=== PATIENT | male | born 1955 | race Hispanic/Latino ===

== ENCOUNTER 2017-07-22 19:37 | Emergency (ER) | payer MEDICARE, MEDICAID ==
[2017-07-22 20:20] LABS: Hematocrit 31.6 % (42.0-52.0); Mean Platelet Volume 7.1 fL (7.4-10.4); Red Blood Cell (RBC) Count 2.92 mill/uL (4.70-6.10); White Blood Cell (WBC) Count 5.3 thou/uL (4.8-10.8)
[2017-07-22 20:43] LABS: #Eosinphils 0.2 thou/uL (0.0-0.7); #Lymphocytes 1.7 thou/uL (1.20-3.40); #Monocytes 0.5 thou/uL (0.11-0.59); #Neutrophils 2.9 thou/uL (1.40-6.50); %Basophils 0.6 % (0.0-1.0); %Eosinophils 3.4 % (0.0-10.0); %Lymphocytes 31.8 % (21.0-51.0); %Monocytes 9.9 % (0.0-10.0); Macrocytosis SLIGHT = 6-15 cells (100X) (0-5/hpf)
[2017-07-22 20:46] LABS: ALT (SGPT) 19 U/L (8-55); AST (SGOT) 23 U/L (5-34); Alkaline Phosphatase 93 U/L (40-150); Anion Gap 14 mmol/L (10-20); BUN (Urea Nitrogen) 41 mg/dL (8.4-25.7); Bilirubin, Total 0.3 mg/dL (0.2-1.2); Calc. Creatinine Clearance 0 mL/min (70-130); Calcium 9.6 mg/dL (7.8-10.44); Carbon Dioxide 30 mmol/L (23-31); Chloride 96 mmol/L (98-107); Estimated GFR-MDRD 14; Globulin 3.4 g/dL (2.4-3.5); Protein, Total 7.4 g/dL (5.8-8.1)
--- NOTE | 2017-07-22 22:17 | CT ---
CT BRAIN WITHOUT CONTRAST: 07/22/17 HISTORY: 61-year-old male with seizure, altered mental status. FINDINGS: There is encephalomalacia in the anteromedial frontal lobes bilaterally. There is associated mild di latation of the frontal horns, left greater than right. No evidence of acute infarct, hemorrhage, mi dline shift or abnormal extra-axial fluid collections is noted. Postop changes of the right frontal craniotomy are present. No acute osseous abnormalities are seen. The visualized paranasal sinuses an d mastoid air cells are well aerated. IMPRESSION: No CT evidence of acute intracranial process. POS: [facility]
== END 2017-07-22 22:41 | disposition home or self-care (01) ==
LOC: ERS 19:37
DX: R56.9 Unspecified convulsions (principal); F32.9 Major depressive disorder, single episode, unspecified; H40.9 Unspecified glaucoma; I73.9 Peripheral vascular disease, unspecified; M19.90 Unspecified osteoarthritis, unspecified site; I10 Essential (primary) hypertension; E03.9 Hypothyroidism, unspecified; G47.00 Insomnia, unspecified; E11.9 Type 2 diabetes mellitus without complications; Z79.899 Other long term (current) drug therapy; Z79.4 Long term (current) use of insulin
CPT/HCPCS: 36415; 36416; 70450; 80053; 84146; 85025; 93005

== ENCOUNTER 2017-08-27 13:42 | Inpatient (IN) | payer MEDICARE, MEDICAID ==
[2017-08-27 14:32] LABS: #Eosinphils 0.2 thou/uL (0.0-0.7); #Lymphocytes 1.8 thou/uL (1.20-3.40); #Monocytes 0.5 thou/uL (0.11-0.59); %Basophils 0.8 % (0.0-1.0); %Eosinophils 3.2 % (0.0-10.0); %Lymphocytes 33.4 % (21.0-51.0); %Monocytes 8.7 % (0.0-10.0); Hematocrit 28.7 % (42.0-52.0); Mean Platelet Volume 6.7 fL (7.4-10.4); Red Blood Cell (RBC) Count 2.64 mill/uL (4.70-6.10); White Blood Cell (WBC) Count 5.5 thou/uL (4.8-10.8)
[2017-08-27] MEDS ORDERED: Nitroglycerin 2% Ointment 1 INCH/1 GM Packet ONE (14:40)
--- NOTE | 2017-08-27 14:40 | RAD ---
UPRIGHT PORTABLE CHEST ONE VIEWS: History: 61-year-old male with chest pain beginning at noon. FINDINGS: Monitor leads overlie the chest. Heart size is within normal limits. The lungs are clear. IMPRESSION: No acute intrathoracic disease. No evidence for pneumonia, overt edema or pleural effusion. POS: [facility]
[2017-08-27 14:53] LABS: ALT (SGPT) 10 U/L (8-55); AST (SGOT) 15 U/L (5-34); Alkaline Phosphatase 66 U/L (40-150); Anion Gap 12 mmol/L (10-20); BUN (Urea Nitrogen) 21 mg/dL (8.4-25.7); Bilirubin, Total 0.3 mg/dL (0.2-1.2); CK (CPK) 27 U/L (30-200); Calc. Creatinine Clearance 0 mL/min (70-130); Calcium 9.4 mg/dL (7.8-10.44); Carbon Dioxide 34 mmol/L (23-31); Chloride 95 mmol/L (98-107); Estimated GFR-MDRD 17; Globulin 3.2 g/dL (2.4-3.5); Lipase 161 U/L (8-78); Protein, Total 6.9 g/dL (5.8-8.1)
[2017-08-27 14:59] LABS: Troponin I 0.014 ng/mL (< 0.028)
[2017-08-27 19:22] LABS: Troponin I 0.017 ng/mL (< 0.028)
[2017-08-27 22:09] LABS: Troponin I 0.018 ng/mL (< 0.028)
[2017-08-27] MEDS ORDERED: Meperidine HCl/PF 25 MG/ML VIAL SLOW IVP PRN (22:40)
[2017-08-27] MEDS ORDERED: Dextrose 50% Abboject 50 ML SYRINGE SLOW IVP PRN (22:40)
[2017-08-27] MEDS ORDERED: Ondansetron HCl/PF 4 MG/2 ML Vial IVP PRN (22:40)
[2017-08-27] MEDS ORDERED: Acetaminophen 325 MG TAB PO PRN (22:40)
[2017-08-27] MEDS ORDERED: HumaLOG 300 UNITS/3 ML VIAL SC PRN (22:40)
[2017-08-27] MEDS ORDERED: clonazePAM 0.5 MG TAB PO PRN (22:40)
[2017-08-27] MEDS ORDERED: Dextrose 5% in Water 1,000 ML IV PRN (22:40)
[2017-08-27] MEDS ORDERED: Sodium Chloride 0.9% 1,000 ML IV SCH (22:45)
--- NOTE | 2017-08-27 23:42 | CT ---
CT ABDOMEN AND PELVIS WITHOUT IV CONTRAST: 08/27/17 Multiple axial tomograms obtained through the abdomen and pelvis without IV enhancement. Oral contras t was not given. HISTORY: Acute pancreatitis. Abdominal pain. Lung bases show bibasilar atelectasis and tiny right effusion. Liver and spleen are unremarkable. The pancreas is unremarkable. There is no evidence of peripancreatic edema or inflammation. The stoma ch and duodenum are unremarkable. Adrenal glands and kidneys are unremarkable. No hydronephrosis. Aorta is calcified but normal caliber . Small bowel loops are normal caliber. Colon appears unremarkable. Appendix appears normal. No free fl uid in the abdomen or pelvis. IMPRESSION: 1. Mild bibasilar atelectasis and small right effusion. 2. No acute process. No CT evidence of pancreatitis. POS: [facility]
[2017-08-28] MEDS: Sodium Chloride 0.9% 1,000 ML IV SCH ×2 (01:39→15:31)
[2017-08-28] MEDS: Levothyroxine Sodium 125 MCG TAB PO SCH (05:25)
[2017-08-28 05:35] LABS: #Basophils 0.1 thou/uL (0.0-0.2); #Eosinphils 0.3 thou/uL (0.0-0.7); #Lymphocytes 1.8 thou/uL (1.20-3.40); #Monocytes 0.6 thou/uL (0.11-0.59); #Neutrophils 3.4 thou/uL (1.40-6.50); %Eosinophils 4.3 % (0.0-10.0); %Lymphocytes 29.4 % (21.0-51.0); %Monocytes 9.3 % (0.0-10.0); Hematocrit 32.9 % (42.0-52.0); Mean Platelet Volume 7.4 fL (7.4-10.4); Red Blood Cell (RBC) Count 3.02 mill/uL (4.70-6.10); White Blood Cell (WBC) Count 6.1 thou/uL (4.8-10.8)
--- NOTE | 2017-08-28 05:40 | HP ---
REASON FOR ADMISSION: Possible acute pancreatitis, chest pain. HISTORY OF PRESENT ILLNESS: Please note, the patient is a very poor historian and most of this history is obtained by my talking to the ER physician and prior records. Per alf records, patient developed left-sided chest pain around 12:30 in the afternoon. He was alert and clenching his chest. He also complained of shortness of breath. They notified PA distance education teacher. The patient was given aspirin and as the pain was persistent, EMS was called around 12:36 and the patient was transferred here to the ER. Currently, he complains of left upper quadrant pain. It is tender to touch in the left upper quadrant area as well. No nausea. PAST MEDICAL AND SURGICAL HISTORY: Diabetes mellitus type 2, hypertension, hypothyroidism, end-stage renal disease on hemodialysis, chronic anemia, osteoarthritis, peripheral vascular disease, glaucoma, left upper extremity dialysis access procedures, right hip surgery. CURRENT MEDICATIONS: Clonazepam 0.25 mg p.o. daily p.r.n. for anxiety, latanoprost eyedrops, levothyroxine 125 mcg p.o. daily, midodrine 10 mg on Friday, Friday, Friday for hypotension related to dialysis, multivitamin 1 tab once daily, NovoLog sliding scale, Ultram p.r.n. for pain, PhosLo 667 mg with meals, citalopram 20 mg daily. ALLERGIES: No known drug allergies. PERSONAL HISTORY: Patient is a [facility] resident. Does not abuse alcohol or drugs. No history of smoking. FAMILY HISTORY: Cannot be obtained as the patient is not a very good historian. REVIEW OF SYSTEMS: Cannot be obtained as patient is not a very good historian. PHYSICAL EXAMINATION: GENERAL: Patient is a 61-year-old male who is currently not in any acute distress. VITAL SIGNS: Blood pressure 116/56, pulse 54 per minute, respiratory rate 18 per minute, temperature 97.8 degrees Fahrenheit, saturating 100% on room air. NECK: Supple, no elevated JVD. HEENT: Eyes, extraocular muscles intact. Pupils reacting to light. Oral cavity, mucous membranes are dry. No exudates or congestion. CARDIOVASCULAR: S1, S2 heard. Regular rhythm. RESPIRATORY SYSTEM: Air entry 1+ bilateral. Scattered rhonchi plus bilateral. ABDOMEN: Soft, bowel sounds heard. No tenderness, rigidity or guarding. There is left upper quadrant tenderness to touch. No rigidity or guarding. Bowel sounds are heard. EXTREMITIES: No peripheral edema or calf tenderness. VASCULAR SYSTEM: Peripheral pulses 1+ bilateral. No ischemic ulcerations or gangrene. CENTRAL NERVOUS SYSTEM: No gross focal deficits seen. He moves all extremities. PSYCHIATRIC: No obvious hallucinations or delusions at present. Please note this cannot be accurately assessed as the patient is not a reliable historian. LABORATORY DATA AND X-RAY FINDINGS: White count of 5, H&H is 9 and 28, platelet count is 208, MCV is 108 with 54% neutrophils. Electrolytes: Serum bicarbonate is 34, BUN 21, creatinine 3.6, glucose 121. Liver enzymes are within normal limits. Troponin x2 is negative. Lipase is elevated at 161. Albumin is 3.7. Chest x-ray done showed no acute infiltrate. CT of the abdomen and pelvis done showed mild bibasilar atelectasis with small right effusion, no CT evidence of pancreatitis was seen. CLINICAL IMPRESSION AND PLAN: The patient will be gently hydrated with normal saline at 75 mL per hour. It is not clear if patient had dialysis yesterday. We will schedule him for dialysis today. The patient has left upper quadrant tenderness. Again, his CAT scan has not revealed any abnormality. His lipase was initially elevated and again it is unclear if he had nausea or vomiting at the alf. He apparently was holding onto his chest with pain. He also complained of shortness of breath at the alf. We will keep him n.p.o. and slowly wean him into liquid diet and solid diet as he tolerates. We will continue PhosLo, Celexa, Xalatan eyedrops, Synthroid as before. We will also consult Gastroenterology if patient were to continue to have persistent left upper quadrant pain. Lipid profile will be obtained as well. We will monitor his liver function test this morning and if it is elevated, right upper quadrant ultrasound could be done based on the labs. He has had 2 sets of troponin done, which were negative. We will obtain an echo with 2D Doppler for LV function. More history from family can be obtained in the morning about the reasons why he is in the alf. Patient apparently has had a right frontal craniotomy done based on the CAT scan done in 07/22/2017. Again, the history behind all this is unclear at present. Patient carries a Out of hospital DNR which was signed recently by his PCP and will be honored until day team has had a chance to confirm the same with family. Please note I have seen and examined patient on 08/27/2017. KATIE
[2017-08-28 05:52] LABS: ALT (SGPT) 10 U/L (8-55); AST (SGOT) 18 U/L (5-34); Alkaline Phosphatase 72 U/L (40-150); Anion Gap 15 mmol/L (10-20); BUN (Urea Nitrogen) 27 mg/dL (8.4-25.7); Bilirubin, Total 0.3 mg/dL (0.2-1.2); Calc. Creatinine Clearance 21 mL/min (70-130); Calcium 9.4 mg/dL (7.8-10.44); Carbon Dioxide 26 mmol/L (23-31); Chloride 98 mmol/L (98-107); Cholesterol 135 mg/dl (< 200 Desired); Estimated GFR-MDRD 14; Globulin 3.4 g/dL (2.4-3.5); LDL Cholesterol, Calculated 60 mg/dL; Lipase 403 U/L (8-78)
[2017-08-28] MEDS: Heparin 5,000 UNITS/ML VIAL SC SCH ×2 (09:06→21:10)
[2017-08-28] MEDS: Calcium Acetate 667 MG CAP PO SCH ×2 (09:07→18:30)
[2017-08-28] MEDS: Docusate 100 MG CAP PO SCH ×2 (09:07→21:10)
[2017-08-28] MEDS: Famotidine/PF 20 mg/2ml Vial SLOW IVP SCH (09:20)
--- NOTE | 2017-08-28 11:47 | PDOC.PN ---
- Subjective Encounter Start Date: 08/28/17 Encounter Start Time: 09:10 -: old records requested/rev Pt seen and exmained, chart reviewed in its entirety. This is my first visit with this patient Pt admitted overnight for Abd pain/CP, history of ESRD and elevated lipase. Pt feels better, continues to have LUQ discomfort, increased with palpation. No N/V now, no F/C. Pt normal dialyzes on M,W,F. states he did not dialyze yesterday and was supposd to dialyze tomorrow 10 point ROS was performed and neg for all except as above - Objective MAR Reviewed: Yes Vital Signs & Weight: Vital Signs (12 hours) Temp Pulse Resp BP Pulse Ox 08/28/17 08:00 97.0 F L 71 18 161/69 H 100 08/28/17 04:00 97.7 F 72 16 119/57 L 98 08/28/17 00:30 97.3 F L 60 18 143/66 H 99 Weight Weight 193 lb 12.8 oz I&O: 08/27/17 08/28/17 08/29/17 06:59 06:59 06:59 Intake Total 570 720 Balance 570 720 Result Diagrams: 08/28/17 04:22 08/28/17 04:22 Additional Labs: Accuchecks 08/28/17 08/28/17 06:01 01:56 POC Glucose 98 92 Radiology Reviewed by me: Yes EKG Reviewed by me: Yes Phys Exam - Physical Examination Constitutional: NAD facial edema to eyelids, lips and cheeks. pt says its normal Neck: no nodes, no JVD, supple, full ROM Respiratory: no wheezing, no rales, no rhonchi, clear to auscultation bilateral Cardiovascular: RRR, no significant murmur, no rub Gastrointestinal: soft, no distention, positive bowel sounds LUQ tende rto moderate palpation, no r/R/G Musculoskeletal: pulses present, edema present Neurological: non-focal, normal sensation, moves all 4 limbs speech hard to understand Lymphatic: no nodes Psychiatric: normal affect, A&O x 3 Skin: no rash, normal turgor, cap refill <2 seconds Dx/Plan (1) LUQ pain Code(s): R10.12 - LEFT UPPER QUADRANT PAIN Status: Acute Comment: not typical for pancreatitis. CT neg for pancreatitis changes, Lipase 150 on admit , now up to 400. gentle IV fluids, NPO. Pain control. GI consulted, will follow up on their recommendations (2) ESRD (end stage renal disease) on dialysis Code(s): N18.6 - END STAGE RENAL DISEASE; Z99.2 - DEPENDENCE ON RENAL DIALYSIS Status: Acute Comment: Renal consulted for possible HD. Will follow up on their recs. pt has gauze taped over his LUE fistula form his last HD, but states its wasnt yesterday (3) Hypothyroid Code(s): E03.9 - HYPOTHYROIDISM, UNSPECIFIED Status: Chronic Qualifiers: Hypothyroidism type: acquired Qualified Code(s): E03.9 - Hypothyroidism, unspecified (4) DM2 (diabetes mellitus, type 2) Status: Chronic Qualifiers: Diabetes mellitus complication status: with kidney complications Diabetes mellitus complication detail: with chronic kidney disease Diabetes mellitus fdc insulin use: with fdc use Chronic kidney disease stage: on chronic dialysis Qualified Code(s): E11.22 - Type 2 diabetes mellitus with diabetic chronic kidney disease; N18.6 - End stage renal disease; N18.6 - End stage renal disease; N18.6 - End stage renal disease; N18.6 - End stage renal disease; Z79.4 - adjunct faculty for medical terminology (current) use of insulin; Z79.4 - nursing home (current ) use of insulin; Z79.4 - nursing home (current) use of insulin; Z79.4 - adjunct faculty for medical terminology (current) use of insulin; Z99.2 - Dependence on renal dialysis; Z99.2 - Dependence on renal dialysis; Z99.2 - Dependence on renal dialysis; Z99.2 - Dependence on renal dialysis (5) HTN (hypertension) Code(s): I10 - ESSENTIAL (PRIMARY) HYPERTENSION Status: Chronic Qualifiers: Hypertension type: essential hypertension Qualified Code(s): I10 - Essential (primary) hypertension (6) PVD (peripheral vascular disease) Code(s): I73.9 - PERIPHERAL VASCULAR DISEASE, UNSPECIFIED Status: Chronic (7) Glaucoma Code(s): H40.9 - UNSPECIFIED GLAUCOMA Status: Chronic Qualifiers: Glaucoma type: unspecified Laterality: bilateral Qualified Code(s): H40.9 - Unspecified glaucoma - Plan cont current plan of care, PT/OT * .
--- NOTE | 2017-08-28 12:35 | CON ---
DATE OF PROCEDURE:. REQUESTING PHYSICIAN: Dr. Waldo Elliott DATE OF CONSULTATION: 08/28/2017 GI INPATIENT CONSULTATION NOTE REQUESTING PHYSICIAN: Dr. Reny Elliott. REASON FOR CONSULTATION: Possible acute pancreatitis and abdominal pain. HISTORY OF PRESENT ILLNESS: Fabrice Galarza Jr. is a 61-year-old man who was admitted to the hospital last night from the fdc, after the acute onset of left-sided chest pain and shortness of elroy ath, this was evidently acute and onset around lunchtime yesterday and lasted for several hours. Upo n presentation here, the pain was more in the left upper quadrant of the abdomen. There is no report of any chronic abdominal symptoms. The patient himself is a very poor historian. The most history is obtained from speaking with his sister. Labs on arrival demonstrated normal cardiac enzymes, but a mild lipase elevation. CT of the abdomen and pelvis, however, showed no evidence of acute pancreat itis and was otherwise normal. Currently, the patient is tolerating a full liquid diet. He says sara t some left upper quadrant pain persists, but the food does not worsen the pain. There has been no n ausea or vomiting. No change in bowel habits. His sister seems to recall, but he was diagnosed with peptic ulcer disease may be back in 2012. We have no records of this year. The patient is a dialys is patient. REVIEW OF SYSTEMS: Full review of systems including constitutional, head, eyes, ears, nose, throat, GI, , cardiovascular, respiratory, musculoskeletal, and neurologic systems is negative except as no charles in the HPI. PAST MEDICAL HISTORY: Hypothyroidism, diabetes type 2, hypertension, end-stage renal disease on hemo dialysis, chronic anemia, osteoarthritis, peripheral vascular disease, glaucoma, right hip surgery. OUTPATIENT MEDICATIONS: Clonazepam; latanoprost eyedrops; levothyroxine; midodrine on Friday, , and Friday for hypotension related dialysis; multivitamin daily; NovoLog sliding scale; Ultram p .r.n.; PhosLo; citalopram. ALLERGIES: No known drug allergies. SOCIAL HISTORY: No alcohol or drug abuse. No history of smoking. He comes from [facility] in [place]. FAMILY HISTORY: Negative for gastrointestinal malignancy. PHYSICAL EXAMINATION: VITAL SIGNS: Temperature 97.0, pulse 71, blood pressure 161/69, 100% oxygen saturation on room air. GENERAL: A 61-year-old man sitting up in bed comfortably, eating breakfast, in no acute distress. SKIN: No jaundice, no rashes were palpable. EYES: No scleral icterus. Extraocular movements intact. ENT: Mucous membranes moist, no oral lesions. LYMPH: No submandibular or supraclavicular lymphadenopathy. THYROID: Nontender to palpation. HEART: Regular rate and rhythm. LUNGS: Clear to auscultation bilaterally. ABDOMEN: Nondistended, bowel sounds present, soft, tender to palpation in the left upper quadrant, b ut no guarding or rebound tenderness. Nontender elsewhere in the abdomen. EXTREMITIES: No peripheral edema. VESSELS: Radial pulses 2+ bilaterally. NEUROLOGICAL: Cranial nerves II-XII intact bilaterally. No focal deficits. LABORATORY STUDIES: WBC 6.1, hemoglobin 10.8, platelets 220, MCV 109. BUN 27, creatinine 4.46, sodi um 135, potassium 4.3, total bilirubin 0.3, alkaline phosphatase 72, AST 18, ALT 10, albumin 3.6, tro ponin 0.01. Lipase 403. ASSESSMENT AND PLAN: 1. Left upper quadrant pain. 2. Elevated lipase, without CT evidence of pancreatitis. 3. Possible history of peptic ulcer disease. The patient's presentation is really not consistent wi th acute pancreatitis. He is tolerating a full liquid diet and this does not worsen the pain. Disco mfort seems to have improved since arrival yesterday that the pain really is more in the left upper q uadrant. I think the lipase elevation is nonspecific and this can also be seen in dialysis patients in the absence of real acute pancreatitis. The etiology of this pain is unclear, though this does se em to be improving. He is certainly at risk for peptic ulcer disease as a hemodialysis patient not o n any acid suppression. I think, it would be reasonable to perform EGD for further investigation, so we will schedule this for tomorrow. I would also like to get an abdominal ultrasound as well just t o rule out biliary pathology given the elevated lipase. Note, the normal LFTs. Thank you for the consultation. Please call with questions or concerns.
--- NOTE | 2017-08-28 16:07 | ULT ---
3ABDOMINAL ULTRASOUND: Date: 08-28-17 History: Elevated lipase and upper abdominal pain. FINDINGS: There is evidence of a small right pleural effusion. Pancreas, visualized portions of the IVC have a normal sonographic appearance. Vascular calcification seen in the abdominal aorta, but the abdominal aorta does appear to be normal in caliber. Gallbladder is not visualized related to patient's history of prior cholecystectomy. The spleen is mostly obscured and not well evaluated on this exam but is normal in size with greatest craniocaudal dimension of 9.7 cm. The kidneys demonstrate a normal sonographic appearance bilaterally. The right kidney measures 8.3 cm in length and the left kidney measured 7.7 cm in length. Common duct measures 0.6 cm in diameter which is within normal limits. IMPRESSION: 1. Small right pleural effusion. 2. Cholecystectomy. POS: [facility]
[2017-08-28] MEDS: Citalopram 20 MG TAB PO SCH (21:09)
[2017-08-28] MEDS: Latanoprost 0.005% Ophth Soln 2.5 ml Bottle EA EYE SCH (21:10)
[2017-08-29] MEDS ORDERED: Pantoprazole 40 MG VIAL IVP SCH ×2 (00:15→09:00)
[2017-08-29 00:58] LABS: #Basophils 0.1 thou/uL (0.0-0.2); #Eosinphils 0.2 thou/uL (0.0-0.7); #Lymphocytes 2.1 thou/uL (1.20-3.40); #Monocytes 0.5 thou/uL (0.11-0.59); #Neutrophils 3.9 thou/uL (1.40-6.50); %Basophils 0.9 % (0.0-1.0); %Eosinophils 3.5 % (0.0-10.0); %Lymphocytes 30.7 % (21.0-51.0); Hematocrit 33.7 % (42.0-52.0); Mean Platelet Volume 7.2 fL (7.4-10.4); Red Blood Cell (RBC) Count 3.12 mill/uL (4.70-6.10); White Blood Cell (WBC) Count 6.7 thou/uL (4.8-10.8)
[2017-08-29 01:36] LABS: ALT (SGPT) 11 U/L (8-55); AST (SGOT) 19 U/L (5-34); Alkaline Phosphatase 71 U/L (40-150); Anion Gap 17 mmol/L (10-20); BUN (Urea Nitrogen) 34 mg/dL (8.4-25.7); Bilirubin, Total 0.4 mg/dL (0.2-1.2); Calc. Creatinine Clearance 18 mL/min (70-130); Calcium 9.8 mg/dL (7.8-10.44); Carbon Dioxide 24 mmol/L (23-31); Chloride 99 mmol/L (98-107); Estimated GFR-MDRD 11; Globulin 3.4 g/dL (2.4-3.5); Magnesium 2.2 mg/dL (1.6-2.6); Protein, Total 7.3 g/dL (5.8-8.1)
[2017-08-29] MEDS: Sodium Chloride 0.9% 1,000 ML IV SCH ×2 (03:00→15:26)
[2017-08-29 06:08] LABS: #Eosinphils 0.2 thou/uL (0.0-0.7); #Lymphocytes 1.3 thou/uL (1.20-3.40); #Monocytes 0.4 thou/uL (0.11-0.59); #Neutrophils 5.2 thou/uL (1.40-6.50); %Basophils 0.4 % (0.0-1.0); %Eosinophils 2.3 % (0.0-10.0); %Lymphocytes 17.9 % (21.0-51.0); %Monocytes 5.9 % (0.0-10.0); Hematocrit 26.7 % (42.0-52.0); Mean Platelet Volume 7.1 fL (7.4-10.4); Red Blood Cell (RBC) Count 2.53 mill/uL (4.70-6.10); White Blood Cell (WBC) Count 7.1 thou/uL (4.8-10.8)
[2017-08-29] MEDS ORDERED: Albuterol Sulfate HFA (OR ONLY) ONE (07:01)
[2017-08-29] MEDS ORDERED: Diprivan 20 ML ONE (07:12)
--- NOTE | 2017-08-29 09:46 | OP ---
DATE OF PROCEDURE: 08/29/2017 GI ENDOSCOPY NOTE SURGEON: Adama Golden M.D. FEEDER OPERATOR SURGEON: None. PROCEDURE: Esophagogastroduodenoscopy, diagnostic. INDICATIONS: 1. Left upper quadrant pain. 2. Hematemesis, occurred overnight for the first time. 3. Possible history of peptic ulcer disease. MEDICATIONS: See anesthesia record. FINDINGS: After discussion of the risks, benefits and alternatives of the procedure, informed consen t was obtained and witnessed. Pre-endoscopic cardiopulmonary examination was satisfactory. Timeout was performed before sedation was achieved. Sedation was achieved with anesthesia assistance in the endoscopy unit. The patient was endotracheally intubated for airway protection and placed in left la teral decubitus position. A Pentax adult therapeutic upper endoscope was placed into the oropharynx and passed into the esophagus. Upon entering the esophagus, I encountered a large amount of blood cl ots. I spent an extensive amount of time clearing blood clot from the esophagus. Visualization was very difficult. Eventually I was able to clear the entire esophagus of blood clots and get a good ex amination. There was no evidence of any esophageal varices. There is some moderate esophagitis in t he distal esophagus, but no deep erosions, no active bleeding from this site. The endoscope was pass ed forward into the stomach. Forward and retroflexed views of the stomach were obtained. There is a large amount of old and fresh blood clot within the gastric fundus. I spent over 45 minutes trying to clear out blood clots from the gastric fundus in an attempt to visualize the entirety of the mucos a, but ultimately this was unsuccessful and a large amount of the gastric fundus was unable to be vis ualized. This was despite repositioning and turning the patient. I was able to examine the gastric body and gastric antrum in their entirety. There was no evidence of any erosions or ulcerations or a ny bleeding lesions in the gastric body or antrum. The endoscope was passed through the pylorus and into the first and second portions of the duodenum. There is some mild erosive duodenitis in the bul b, but again no deep erosions, no ulcerations, no active bleeding noted. During the entirety of the exam. I did not visualize any new blood, but active bleeding cannot be ruled out underneath a large blood clot in the fundus. I was able to cleanse the GE junction from the gastric side, and I did not see any evidence of gastric varices in the region of the fundus that was able to be examined. The u pper endoscope was completely withdrawn and the procedure was completed. The patient remained endotr acheally intubated and will be transferred to the ICU setting for monitoring today. There were no im mediate post-procedure complications. IMPRESSION: 1. Large old and fresh blood clots filling the gastric fundus, precluding visualization of much of t he gastric fundus. 2. No active bleeding noted on this examination, but again, I was unable to clear the gastric fundus . 3. Distal esophagitis, without deep erosions. No esophageal varices. 4. Mild erosive duodenitis, nonbleeding. RECOMMENDATIONS: 1. Transfer patient to the ICU, monitored setting today, and remain intubated for airway protection given the large amount of blood clot in the stomach. 2. We will plan to repeat EGD tomorrow morning hopefully, to be able to clear the fundus. 3. Repeat H&H this afternoon. 4. Protonix drip. Call any sign with questions or concerns.
[2017-08-29 10:25] LABS: Oxyhemoglobin 96.2 % (94.0-97.0); Sodium 138 mmol/L (135-148)
[2017-08-29 10:29] LABS: Mechanical Tidal Volume 550 ml; Modified Allen's Test NOT DONE; Vent YES
[2017-08-29 10:30] LABS: Mode SIMV/PSV; Pressure Support 10 cmH2O
[2017-08-29] MEDS ORDERED: DC Sedation Protocol FS ONE (10:36)
--- NOTE | 2017-08-29 10:37 | PDOC.PN ---
- Subjective Encounter Start Date: 08/29/17 Encounter Start Time: 09:45 Pt seen in ICU after pt transferred to ICU from [facility]. Pt developed hematemesis last night, scheduled for EGD today. Hgb down 2 grams overnight In EGD, pt noted to have a large amount of blood in his stomach, but no obvious source of bleeding. Plan to return tomorrow for re-look. Pt intubated, transferred to ICU on the Vent I have spoken face to face with Dr pearce form Pulm/CC. unable ot get ROS due to sedation and intubation - Objective Resuscitation Status: FULL MAR Reviewed: Yes Vital Signs & Weight: Vital Signs (12 hours) Temp Pulse Resp BP BP Pulse Ox 08/29/17 09:46 92 95/47 L 08/29/17 04:39 98.8 F 77 18 115/59 L 97 08/29/17 01:10 80 20 157/74 H 08/29/17 00:30 75 20 149/70 H 08/28/17 23:50 84 20 161/74 H 99 Weight Weight 195 lb 8 oz Most Recent Monitor Data Heart Rate from ECG 92 NIBP 91/48 NIBP BP-Mean 61 Respiration from ECG 17 SpO2 100 I&O: 08/28/17 08/29/17 08/30/17 06:59 06:59 06:59 Intake Total 570 3360 Output Total 300 Balance 570 3060 Result Diagrams: 08/29/17 05:51 08/29/17 00:28 Additional Labs: Accuchecks 08/29/17 08/29/17 08/28/17 10:00 06:02 23:32 POC Glucose 132 H 141 H 125 H 08/28/17 08/28/17 19:49 12:28 POC Glucose 75 135 H Radiology Reviewed by me: Yes EKG Reviewed by me: Yes Phys Exam - Physical Examination Constitutional: NAD sedated and orally intubated, on the Vent. HEENT: PERRLA, moist MMs, sclera anicteric, oral pharynx no lesions palpebral edema about the same Neck: no nodes, no JVD, supple, full ROM Respiratory: no wheezing, no rales, no rhonchi, clear to auscultation bilateral Cardiovascular: RRR, no significant murmur, no rub Gastrointestinal: soft, positive bowel sounds Musculoskeletal: pulses present, edema present Lymphatic: no nodes Skin: no rash, normal turgor, cap refill <2 seconds Dx/Plan (1) LUQ pain Code(s): R10.12 - LEFT UPPER QUADRANT PAIN Status: Acute Comment: not typical for pancreatitis. CT neg for pancreatitis changes, Lipase 150 on admit , up to 400 on 08/28, 71 on 08/29. LUQ pain likely due ot site of bleed. follow up on GI noted and repeat EGD tomorrow (2) ESRD (end stage renal disease) on dialysis Code(s): N18.6 - END STAGE RENAL DISEASE; Z99.2 - DEPENDENCE ON RENAL DIALYSIS Status: Acute Comment: Renal consulted for possible HD, i have personally spoken with Dr Ferrell. Will follow up on their recs. (3) Hypothyroid Code(s): E03.9 - HYPOTHYROIDISM, UNSPECIFIED Status: Chronic Qualifiers: Hypothyroidism type: acquired Qualified Code(s): E03.9 - Hypothyroidism, unspecified (4) DM2 (diabetes mellitus, type 2) Status: Chronic Qualifiers: Diabetes mellitus complication status: with kidney complications Diabetes mellitus complication detail: with chronic kidney disease Diabetes mellitus intermission coordinator insulin use: with intermission coordinator use Chronic kidney disease stage: on chronic dialysis Qualified Code(s): E11.22 - Type 2 diabetes mellitus with diabetic chronic kidney disease; N18.6 - End stage renal disease; Z99.2 - Dependence on renal dialysis; Z99.2 - Dependence on renal dialysis; Z99.2 - Dependence on renal dialysis; N18.6 - End stage renal disease; N18.6 - End stage renal disease; N18.6 - End stage renal disease; Z79.4 - penitentiary (current ) use of insulin; Z79.4 - lobsterman (current) use of insulin; Z79.4 - lobsterman (current) use of insulin; Z79.4 - penitentiary (current) use of insulin; Z99.2 - Dependence on renal dialysis (5) HTN (hypertension) Code(s): I10 - ESSENTIAL (PRIMARY) HYPERTENSION Status: Chronic Qualifiers: Hypertension type: essential hypertension Qualified Code(s): I10 - Essential (primary) hypertension (6) PVD (peripheral vascular disease) Code(s): I73.9 - PERIPHERAL VASCULAR DISEASE, UNSPECIFIED Status: Chronic (7) Glaucoma Code(s): H40.9 - UNSPECIFIED GLAUCOMA Status: Chronic Qualifiers: Glaucoma type: unspecified Laterality: bilateral Qualified Code(s): H40.9 - Unspecified glaucoma (8) Gastric bleeding Code(s): K92.2 - GASTROINTESTINAL HEMORRHAGE, UNSPECIFIED Status: Acute Comment: per GI. (9) Acute blood loss anemia Code(s): D62 - ACUTE POSTHEMORRHAGIC ANEMIA Status: Acute Comment: serial H/ H. transfuse as needed - Plan cont current plan of care, respiratory therapy * .
[2017-08-29] MEDS: Pantoprazole 80 MG, Admixture Fee 1 EACH in Sodium Chloride 0.9% 100 ML IVP SCH (10:46)
[2017-08-29] MEDS: Levothyroxine Sodium 125 MCG TAB PO SCH (10:47)
--- NOTE | 2017-08-29 11:14 | CON ---
DATE OF CONSULTATION: 08/29/2017 CONSULTING PHYSICIAN: Dr. Ibarra from [facility]. REASON FOR CONSULTATION: Postoperative respiratory failure. HISTORY OF PRESENT ILLNESS: This is a 61-year-old male who underwent an EGD earlier today. He has b een left intubated with the purpose of a repeat endoscopy planned for tomorrow. He has a large amoun t of blood in his gastric fundus, but no active bleeding, so a second look is needed for tomorrow. A ccording to the history and physical, the patient was originally brought in on 08/27/2017 for possibl e acute pancreatitis and chest pain. PAST MEDICAL HISTORY: 1. End-stage renal disease, requiring dialysis. 2. Diabetes mellitus type 2. 3. Anemia. 4. Osteoarthritis. 5. Peripheral vascular disease. 6. Glaucoma. PAST SURGICAL HISTORY: Left upper arm dialysis access and right hip surgery. MEDICATIONS PRIOR TO ADMISSION: Clonazepam, levothyroxine, midodrine, multivitamin, NovoLog insulin, Ultram, PhosLo and citalopram. ALLERGIES: None. SOCIAL HISTORY: Does not smoke. Does not use alcohol. Lives in a [facility]. FAMILY MEDICAL HISTORY: Unremarkable. REVIEW OF SYSTEMS: Cannot be obtained as the patient is intubated. PHYSICAL EXAMINATION: VITAL SIGNS: Temperature 98.8, pulse 92 and blood pressure 91/48. GENERAL: He is sedated on mechanical ventilation. HEENT: He has periorbital edema. NECK: No adenopathy or JVD. LUNGS: Clear to auscultation. CARDIAC: S1 and S2 regular. There is no murmur, rub or gallop. ABDOMEN: Soft. EXTREMITIES: No edema. Left upper arm AV graft is noted. LABORATORY DATA: White blood cell count 7.1, hematocrit 26.7 and platelet count 216. PH of 7.49, pC O2 of 32 and pO2 of 101. Sodium 136, potassium 4.3, chloride 99, CO2 of 24, BUN 34, creatinine 5.4 a nd glucose 131. ASSESSMENT: 1. Postoperative respiratory failure. 2. End-stage renal disease. 3. Gastrointestinal bleeding. PLAN: 1. Leave intubated overnight. 2. Sedate as necessary. 3. Check chest x-ray to verify endotracheal tube placement.
[2017-08-29] MEDS ORDERED: Propofol 1,000 MG/100 ML VIAL IV ONE (11:19)
[2017-08-29] MEDS ORDERED: Fentanyl 20 MCG/ML 250 ML IVPB SCH (11:20)
[2017-08-29] MEDS ORDERED: DISCONTINUE PREVIOUS NARCOTIC PAIN MEDICATIONS AND BENZODIAZEPINES FS SCH (11:20)
[2017-08-29] MEDS ORDERED: Lorazepam 2 MG/ML VIAL SLOW IVP PRN ×2 (11:20→19:14)
[2017-08-29] MEDS ORDERED: Propofol 1,000 MG/100 ML VIAL IV PRN (11:20)
[2017-08-29] MEDS ORDERED: Morphine PF 1 MG/ML SYR IVP PRN (11:21)
--- NOTE | 2017-08-29 11:30 | RAD ---
PORTABLE UPRIGHT FRONTAL CHEST: Date: 08/29/17 COMPARISON: 08/27/17. HISTORY: Intubated patient for vascular prominence. FINDINGS: Endotracheal tube terminates at the level of the clavicular heads. No pneumothorax is seen. There is partial opacification of the left lower lobe with obscuration of the left hemidiaphragm and the left heart border, new. Blunting of the costophrenic angle suggests new pleural effusion on the l eft as well. There is hazy reticulonodular density within the medial right lung base, worsened since the prior exa m. IMPRESSION: 1. Worsening aeration of both lung bases, left greater than right. Findings suggest infectious pneum onitis/aspiration and/or pulmonary edema. Follow-up imaging following treatment to document resolutio n is advised. 2. Increased soft tissue density in the right paratracheal region, nonspecific. If this does not res olve on follow-up chest radiographs, a CT examination of the chest would be recommended. CODE T. POS: TISH
[2017-08-29] MEDS: Docusate 100 MG CAP PO SCH ×2 (12:21→20:11)
[2017-08-29] MEDS: Calcium Acetate 667 MG CAP PO SCH ×2 (12:21→17:31)
[2017-08-29] MEDS: Famotidine/PF 20 mg/2ml Vial SLOW IVP SCH (12:22)
[2017-08-29] MEDS: Heparin 5,000 UNITS/ML VIAL SC SCH ×2 (13:11→20:06)
[2017-08-29] MEDS: Midodrine HCl 5 MG TAB PO SCH (13:12)
[2017-08-29] MEDS ORDERED: Succinylcholine Chloride 20 MG/ML 10 ml SYRINGE FS ONE (14:14)
[2017-08-29] MEDS ORDERED: Esmolol 100 MG/10 ML VIAL ONE (14:14)
[2017-08-29] MEDS ORDERED: Propofol 200 MG/20 ML VIAL ONE (14:14)
[2017-08-29] MEDS ORDERED: Ondansetron HCl/PF 4 MG/2 ML Vial ONE (14:14)
[2017-08-29] MEDS ORDERED: Calcium Chloride 1 GM/10 ML Abboject SYRINGE ONE (14:14)
[2017-08-29] MEDS ORDERED: Metoclopramide HCl 10 MG/2 ML VIAL ONE (14:14)
[2017-08-29] MEDS ORDERED: PHENYLEPHRINE-NS 100 MCG/ML 10 ML SYRINGE ONE (14:14)
[2017-08-29] MEDS ORDERED: ePHEDrine/0.9% NaCl/PF SYRINGE 50 mg/10 ml ONE (14:14)
[2017-08-29 15:09] LABS: Hematocrit 22.8 % (42.0-52.0)
[2017-08-29] MEDS: Citalopram 20 MG TAB PO SCH (20:07)
[2017-08-29] MEDS: Latanoprost 0.005% Ophth Soln 2.5 ml Bottle EA EYE SCH (20:15)
--- NOTE | 2017-08-30 00:26 | CON ---
DATE OF CONSULTATION: 08/29/2017 CONSULTING PHYSICIAN: Bo Blank M.D. REQUESTING PHYSICIAN: Dr. Elliott. REASON FOR CONSULTATION: The need for maintenance hemodialysis. IMPRESSION: 1. End-stage renal disease, hemodialysis dependent on a Friday, Friday, and Friday. 2. Acute on chronic anemia, likely in the context of gastrointestinal bleed. PLAN: 1. Patient seems to be hemodynamically unstable with worsening anemia, hemoglobin of 7, making it ve ry difficult to dialyze this patient efficiently. 2. Type and cross match and transfuse this patient with 2 units of blood. 3. Further management to be dependent on the clinical course. HISTORY OF PRESENT ILLNESS: A 61-year-old gentleman who is a very poor historian, moreover at this p oint I cannot get much of any history from this patient who is on life support, patient presented her e with left upper quadrant pain and initially diagnosed with pancreatitis; however, with a history o f peptic ulcer disease, patient did undergo EGD that revealed possible evidence of GI bleed. Patient with a hemoglobin of 11, but at this time of dictation hemoglobin has dropped down to 7 with hemodyn amic instability noted with systolic blood pressure in the 70s making it very difficult to dialyze. The need for continue maintenance hemodialysis, necessitated the renal consultation. PAST MEDICAL HISTORY: Significant for end-stage renal disease, hemodialysis dependent, type 2 diabet es, anemia, osteoarthritis, peripheral vascular disease, and glaucoma, possible CVA. MEDICATIONS: Reviewed as documented on [employer] ALLERGIES: No known drug allergies. SOCIAL HISTORY: No alcohol, no tobacco, no illicit drug use. Patient currently in a detention. FAMILY HISTORY: Could not be obtained from this patient. REVIEW OF SYSTEMS: Unobtainable. PHYSICAL EXAMINATION: GENERAL: The patient was found to be intubated and on life support, noted with the following vital s igns. VITAL SIGNS: Afebrile with temperature 97.8, respiratory rate 13, blood pressure 84/44 down to 77/40 , heart rate of 77. HEENT: Remarkable for endotracheal tube in place. CARDIOVASCULAR SYSTEM: First and second heart sounds were heard. RESPIRATORY SYSTEM: Reveals vented sounds. DIGESTIVE SYSTEM: Revealed a benign abdomen. EXTREMITIES: With positive bowel sounds. EXTREMITIES: No peripheral edema. SKIN: No new gross rash. LYMPHATICS: No peripheral lymphadenopathy. NEUROLOGIC: Revealed the patient is sedated, but arousable. No lateralizing sign. SUMMARY: A 61-year-old gentleman with end-stage renal disease, hemodialysis dependent, who presented here with abdominal pain, possibly having GI bleed. Thank you for this consultation. We will follow with you.
[2017-08-30] MEDS: Sodium Chloride 0.9% 1,000 ML IV SCH ×2 (04:47→16:28)
[2017-08-30 04:57] LABS: #Lymphocytes 1.5 thou/uL (1.20-3.40); #Monocytes 0.6 thou/uL (0.11-0.59); #Neutrophils 6.9 thou/uL (1.40-6.50); %Basophils 0.2 % (0.0-1.0); %Eosinophils 0.4 % (0.0-10.0); %Lymphocytes 16.4 % (21.0-51.0); %Monocytes 6.6 % (0.0-10.0); Hematocrit 27.3 % (42.0-52.0); Mean Platelet Volume 7.2 fL (7.4-10.4); Red Blood Cell (RBC) Count 2.69 mill/uL (4.70-6.10)
[2017-08-30 05:06] LABS: ALT (SGPT) 8 U/L (8-55); AST (SGOT) 13 U/L (5-34); Alkaline Phosphatase 55 U/L (40-150); Anion Gap 11 mmol/L (10-20); BUN (Urea Nitrogen) 25 mg/dL (8.4-25.7); Bilirubin, Total 0.4 mg/dL (0.2-1.2); Calc. Creatinine Clearance 30 mL/min (70-130); Calcium 8.7 mg/dL (7.8-10.44); Carbon Dioxide 30 mmol/L (23-31); Chloride 101 mmol/L (98-107); Estimated GFR-MDRD 19; Globulin 2.5 g/dL (2.4-3.5); Lipase 24 U/L (8-78); Protein, Total 5.8 g/dL (5.8-8.1)
[2017-08-30] MEDS: Levothyroxine Sodium 125 MCG TAB PO SCH (05:42)
[2017-08-30 06:45] LABS: Mechanical Tidal Volume 550 ml; Modified Allen's Test NOT DONE; Oxyhemoglobin 96.4 % (94.0-97.0); Pressure Support 10 cmH2O; Sodium 140 mmol/L (135-148); Vent YES
[2017-08-30 06:46] LABS: Mode SIMV/PSV
[2017-08-30] MEDS: Calcium Acetate 667 MG CAP PO SCH ×2 (07:24→11:44)
[2017-08-30] MEDS: Docusate 100 MG CAP PO SCH ×2 (07:26→20:59)
[2017-08-30] MEDS: Famotidine/PF 20 mg/2ml Vial SLOW IVP SCH (07:26)
--- NOTE | 2017-08-30 10:46 | PRG ---
DATE OF SERVICE: 08/30/2017 SUBJECTIVE: Patient is doing well. He remains intubated on mechanical ventilation. PHYSICAL EXAMINATION: VITAL SIGNS: Temperature is 99.8, blood pressure systolic 80s-100s, pulse 68, O2 sat 97%. Intake fo r 24 hours 2517, output 0 - he is a dialysis patient. HEENT: Unremarkable. NECK: No JVD. LUNGS: Coarse rhonchi. CARDIAC: S1 and S2 regular. ABDOMEN: Soft. EXTREMITIES: No edema. LABORATORY DATA: White blood cell count 9, hematocrit 27.3, platelet count 179, pH of 7.51, pCO2 of 36, pO2 of 99 on SIMV rate 10, tidal volume 550, PEEP 5, pressure support of 10, FiO2 of 50%. Sodium 138, potassium 3.7, chloride 101, CO2 30, BUN 25, creatinine 3.2, and glucose 126. ASSESSMENT 1. Gastrointestinal bleeding. 2. Acute respiratory failure requiring mechanical ventilation. 3. End-stage renal disease requiring hemodialysis. PLAN: Hopefully can be extubated after his second EEG today. His hemodynamics has remained stable a nd his hemoglobin is relatively stable. Discussed with at bedside. TOTAL CRITICAL CARE TIME: 30 minutes.
--- NOTE | 2017-08-30 11:32 | PDOC.PN ---
- Subjective Encounter Start Date: 08/30/17 Encounter Start Time: 09:15 intubated. no acute night events - Objective Vital Signs & Weight: Vital Signs (12 hours) Temp Pulse Resp BP Pulse Ox 08/30/17 11:25 83 109/50 L 08/30/17 10:00 17 08/30/17 08:00 99.8 F H 10 L 08/30/17 07:27 99.8 F H 70 16 100 08/30/17 06:42 85 100/41 L 08/30/17 06:00 10 L 08/30/17 04:00 98.1 F 14 08/30/17 02:41 69 08/30/17 02:00 12 08/30/17 00:00 97.7 F 15 Weight Admit Weight 195 lb Weight 197 lb 1.6 oz Most Recent Monitor Data Heart Rate from ECG 69 NIBP 97/45 NIBP BP-Mean 56 Respiration from ECG 17 SpO2 92 I&O: 08/29/17 08/30/17 08/31/17 06:59 06:59 06:59 Intake Total 3360 2517.8 Output Total 300 0 Balance 3060 2517.8 0 Result Diagrams: 08/30/17 03:33 08/30/17 03:33 Additional Labs: Accuchecks 08/30/17 08/29/17 08/29/17 10:15 22:02 18:10 POC Glucose 132 H 136 H 123 H 08/29/17 12:50 POC Glucose 133 H Phys Exam - Physical Examination Constitutional: NAD HEENT: PERRLA Neck: no nodes, no JVD Respiratory: no wheezing, clear to auscultation bilateral Cardiovascular: RRR, no rub Gastrointestinal: soft, no distention Musculoskeletal: pulses present Dx/Plan (1) Upper GI bleed Code(s): K92.2 - GASTROINTESTINAL HEMORRHAGE, UNSPECIFIED Status: Acute (2) Acute blood loss anemia Code(s): D62 - ACUTE POSTHEMORRHAGIC ANEMIA Status: Acute Comment: serial H/ H. transfuse as needed (3) ESRD (end stage renal disease) on dialysis Code(s): N18.6 - END STAGE RENAL DISEASE; Z99.2 - DEPENDENCE ON RENAL DIALYSIS Status: Acute Comment: Renal consulted for possible HD, i have personally spoken with Dr Ferrell. Will follow up on their recs. (4) DM2 (diabetes mellitus, type 2) Status: Chronic Qualifiers: Diabetes mellitus complication status: with kidney complications Diabetes mellitus complication detail: with chronic kidney disease Diabetes mellitus termite technician insulin use: with termite technician use Chronic kidney disease stage: on chronic dialysis Qualified Code(s): E11.22 - Type 2 diabetes mellitus with diabetic chronic kidney disease; N18.6 - End stage renal disease; Z99.2 - Dependence on renal dialysis; Z99.2 - Dependence on renal dialysis; Z99.2 - Dependence on renal dialysis; N18.6 - End stage renal disease; N18.6 - End stage renal disease; N18.6 - End stage renal disease; Z79.4 - alf (current ) use of insulin; Z79.4 - alf (current) use of insulin; Z79.4 - terminal worker (current) use of insulin; Z79.4 - alf (current) use of insulin; Z99.2 - Dependence on renal dialysis (5) HTN (hypertension) Code(s): I10 - ESSENTIAL (PRIMARY) HYPERTENSION Status: Chronic Qualifiers: Hypertension type: essential hypertension Qualified Code(s): I10 - Essential (primary) hypertension - Plan cont current plan of care * . will be undergoing 2nd EGD shortly continue protonix gtt per GI follow with results of EGD likely extubate after procedure done monitor H/H
--- NOTE | 2017-08-30 16:10 | OP ---
DATE OF PROCEDURE: 08/30/2017 SURGEON: Adama Golden M.D. ANESTHESIOLOGIST AND CRITICAL CARE SURGEON: None. PROCEDURE: Esophagogastroduodenoscopy with control of hemorrhage. INDICATION: Upper GI bleeding. This is a second look EGD as I was unable to clear the gastric fundu s of blood clots on EGD yesterday. MEDICATIONS: See anesthesia record. FINDINGS: After discussion of the risks, benefits and alternatives of the procedure, informed consen t was obtained and verified. Pre-endoscopic cardiopulmonary examination was satisfactory. Timeout w as performed before the procedure started. The patient was already sedated on ventilator. The proce dure was performed in his ICU room at bedside. He was placed in the left lateral decubitus position. A Pentax adult upper endoscope was placed into the oropharynx and passed through the cricopharyngeu s under direct visualization. The proximal and mid esophageal mucosa again appeared normal. Again i n the distal esophagus, there is somewhat severe erosive esophagitis, but no evidence of bleeding. N o evidence of esophageal varices. The endoscope was advanced into the stomach. Forward and retrofle xed views of the entire gastric mucosa were obtained. Again, there were some old blood clots as well as some more fresh appearing blood clots, though less than had been visualized yesterday. I spent e xtensive time again suctioning out blood clots from the fundus, which was successful at this time. I then irrigated the entire gastric mucosa and got a good examination of the mucosa. There was no jenn dence of any gastric varices. In the gastric fundus, there is what appears to be a Dieulafoy lesion with active bleeding from the mucosa without overlying ulcer. This continued despite extensive washi ng, I therefore treated this lesion with bipolar cautery with good hemostasis achieved. There was al so 2 deep ulcers with ragged edges up in the gastric fundus. One of these ulcers was clean based, th e other one did have a raised red vessel with some mild active oozing of blood. I performed bipolar cautery on this visible vessel and good hemostasis was achieved. I did make a decision to biopsy the ulcer edges to rule out malignancy. Two biopsies were obtained from the ulcer edge. There was some active oozing induced with biopsies and this oozing was treated with bipolar cautery with good hemos tasis achieved. The upper endoscope was then completely withdrawn and the patient allowed to recover . The patient tolerated the procedure well. There were no immediate post-procedure complications. IMPRESSION: 1. Two deep ulcers in the gastric fundus, one with a visible vessel and active oozing. Visible vess el was cauterized with bipolar cautery. Biopsies were obtained from the ulcer edge. 2. Single Dieulafoy lesion in the gastric fundus, with active bleeding, cauterized with good hemosta sis achieved. 3. Severe distal esophagitis without bleeding. 4. No esophageal or gastric varices. 5. Mild duodenitis. RECOMMENDATIONS: 1. Continue Protonix drip today, transitioned to 40 mg IV q.12 hours tomorrow. If doing okay, trans itioned to twice daily oral proton pump inhibitor upon hospital discharge. 2. The patient can start a clear liquid diet once he is extubated. 3. Continue to trend H&H. 4. We will follow up biopsy results on gastric ulcer biopsies.
[2017-08-30] MEDS: Pantoprazole 80 MG, Admixture Fee 1 EACH in Sodium Chloride 0.9% 100 ML IVP SCH (17:41)
[2017-08-30] MEDS: Citalopram 20 MG TAB PO SCH (20:59)
[2017-08-30] MEDS: Latanoprost 0.005% Ophth Soln 2.5 ml Bottle EA EYE SCH (21:00)
--- NOTE | 2017-08-31 01:40 | PRG ---
DATE OF SERVICE: 08/30/2017 SUBJECTIVE: The patient was seen and examined, still on life support, noted with the following vital signs. PHYSICAL EXAMINATION: VITAL SIGNS: Blood pressure 98/44, heart rate of 73, O2 sat 100% on vent. HEENT: Remarkable for endotracheal tube in place. CARDIOVASCULAR: First and second heart sounds were heard. RESPIRATORY SYSTEM: Reveals vented sounds. DIGESTIVE SYSTEM: Revealed a benign abdomen. EXTREMITIES: No peripheral edema. SKIN: No new gross rash. LYMPHATICS: No peripheral lymphadenopathy. NEUROLOGIC: The patient seems to be okay. IMPRESSION: 1. End-stage renal disease, hemodialysis dependent. 2. Gastrointestinal bleed, status post endoscopic study with cauterization. PLAN: 1. Continue current renal supportive measures. 2. Discontinue IV fluid. 3. Further management will be dependent on the clinical course.
[2017-08-31] MEDS: Pantoprazole 80 MG, Admixture Fee 1 EACH in Sodium Chloride 0.9% 100 ML IVP SCH (04:35)
[2017-08-31 04:42] LABS: #Eosinphils 0.1 thou/uL (0.0-0.7); #Lymphocytes 1.2 thou/uL (1.20-3.40); #Monocytes 0.7 thou/uL (0.11-0.59); #Neutrophils 8.2 thou/uL (1.40-6.50); %Basophils 0.1 % (0.0-1.0); %Eosinophils 0.7 % (0.0-10.0); %Lymphocytes 11.9 % (21.0-51.0); %Monocytes 7.2 % (0.0-10.0); Hematocrit 25.6 % (42.0-52.0); Mean Platelet Volume 7.6 fL (7.4-10.4); Red Blood Cell (RBC) Count 2.45 mill/uL (4.70-6.10); White Blood Cell (WBC) Count 10.2 thou/uL (4.8-10.8)
[2017-08-31 05:18] LABS: Anion Gap 12 mmol/L (10-20); BUN (Urea Nitrogen) 33 mg/dL (8.4-25.7); Calc. Creatinine Clearance 25 mL/min (70-130); Calcium 7.4 mg/dL (7.8-10.44); Carbon Dioxide 22 mmol/L (23-31); Chloride 110 mmol/L (98-107); Estimated GFR-MDRD 16
[2017-08-31] MEDS: Levothyroxine Sodium 125 MCG TAB PO SCH (05:38)
[2017-08-31] MEDS: Docusate 100 MG CAP PO SCH ×2 (07:24→20:21)
[2017-08-31] MEDS: Calcium Acetate 667 MG CAP PO SCH ×2 (07:24→17:15)
[2017-08-31] MEDS: Famotidine/PF 20 mg/2ml Vial SLOW IVP SCH (07:25)
--- NOTE | 2017-08-31 09:16 | RAD ---
PORTABLE AP CHEST XRAY: DATE: 08/31/17. HISTORY: On ventilator. Followup evaluation. COMPARISON: 08/29/17. FINDINGS: Endotracheal tube remains in place. Multiple environmental monitoring technician leads overlie the chest. Pleural and p arenchymal changes at the left lung base have improved when compared to the prior exam. The prominen t interstitial densities at the medial right lung base also appear improved. The right paratracheal opacity is again present but also appears less prominent. I am unsure if this is related to lymphade nopathy or vascular structures. No other interval change. IMPRESSION: 1. Improvement in parenchymal opacities of the left lung base which may be related to improvement in pneumonia and left pleural effusion. Continued followup to resolution is recommended. 2. Stable prominence of right paratracheal soft tissues; although, this does appear improved and cou ld be related to better depth of inspiration. Lymphadenopathy could not be entirely excluded as this has a slight lobulated appearance. Continued followup is recommended. If this does not resolve on followup examination, CT exam would be warranted. POS: TISH
--- NOTE | 2017-08-31 09:53 | PRG ---
DATE OF SERVICE: 08/31/2017 SUBJECTIVE: He is awake and alert, and follows commands. He was left intubated after his EGD yester day. PHYSICAL EXAMINATION: VITAL SIGNS: His temperature is 99.9, pulse 76, blood pressure 99/40, O2 sat 100%. Total intake for 24 hours 224, output 0. HEENT: Unremarkable except for the endotracheal tube in place. NECK: No JVD. LUNGS: Clear. CARDIOVASCULAR: S1, S2 regular. ABDOMEN: Soft, nontender. EXTREMITIES: No clubbing, cyanosis, or edema. LABORATORY DATA: Sodium 141, potassium 3.4, chloride 110, CO2 22, BUN 33, creatinine 3.8, glucose 78 . White blood cell count 10.2, hematocrit 25.6, platelet count 149. ASSESSMENT: 1. Acute respiratory failure requiring mechanical ventilation. 2. Status post gastrointestinal bleeding. 3. End-stage renal disease requiring hemodialysis. 4. Mild hypokalemia. PLAN: Everything looks good. Therefore, he will be extubated. Clear liquid diet will be started. He will continue Protonix per GI and hopefully can be moved out to the floor later this afternoon.
--- NOTE | 2017-08-31 10:59 | PRG ---
GI INPATIENT DAILY PROGRESS NOTE DATE OF SERVICE: 08/31/2017 SUBJECTIVE: Mr. Galarza was able to be extubated. He is currently in no distress. He denies any abd ominal pain or nausea at this time. He has remained hemodynamically stable and hemoglobin has essent ially been stable currently at 8.4. OBJECTIVE: VITAL SIGNS: Temperature 99.9, blood pressure 118/49, heart rate 78 and 98% oxygen saturation on 3 l iters nasal cannula. GENERAL: No acute distress. HEART: Regular rate and rhythm. LUNGS: Some bibasilar crackles. No wheezing, no respiratory distress. ABDOMEN: Soft and nontender to palpation throughout. EXTREMITIES: No peripheral edema. LABORATORY STUDIES: WBC 10.2, hemoglobin 8.4 and platelets 149. Sodium 141, potassium 3.4, BUN 33 a nd creatinine 3.87. ASSESSMENT AND PLAN: 1. Gastric ulcers in the fundus with active hemorrhage, status post successful hemostasis with elect rocautery on esophagogastroduodenoscopy yesterday 08/30/2017. 2. Dieulafoy lesion in the fundus of the stomach with active bleeding, status post successful hemost asis with cautery on esophagogastroduodenoscopy yesterday 08/30/2017. 3. Distal esophagitis. 4. Anemia, gastrointestinal blood loss. RECOMMENDATIONS: We will advance patient's diet to a full liquid diet. Continue to trend the H&H. Would continue the IV Protonix while hospitalized and switch to twice daily oral proton pump inhibito r on hospital discharge. We will plan to follow up biopsy results on the gastric ulcer biopsies.
--- NOTE | 2017-08-31 13:05 | PDOC.PN ---
- Subjective Encounter Start Date: 08/31/17 Encounter Start Time: 09:20 Pt seen for followup re: acute posthemorrhagic anemia. Extubated earlier today , speaking in low voice. Denies chest pain, shortness of breath - Objective MAR Reviewed: Yes Vital Signs & Weight: Vital Signs (12 hours) Temp Pulse Resp BP Pulse Ox 08/31/17 12:00 98.1 F 99 08/31/17 08:00 99.9 F H 08/31/17 07:25 77 16 98 08/31/17 07:10 99.9 F H 77 18 100 08/31/17 06:42 73 91/39 L 08/31/17 06:37 76 91/39 L 08/31/17 06:00 10 L 08/31/17 04:00 99.0 F 12 08/31/17 02:35 69 08/31/17 02:00 17 Weight Admit Weight 195 lb Weight 182 lb 8.684 oz Most Recent Monitor Data Heart Rate from ECG 80 NIBP 99/37 NIBP BP-Mean 46 Respiration from ECG 15 SpO2 98 I&O: 08/30/17 08/31/17 09/01/17 06:59 06:59 06:59 Intake Total 2517.8 1224.0 Output Total 0 0 Balance 2517.8 1224.0 0 Result Diagrams: 08/31/17 04:01 08/31/17 04:01 Additional Labs: Accuchecks 08/31/17 08/31/17 08/30/17 10:18 03:57 22:12 POC Glucose 95 95 98 08/30/17 16:25 POC Glucose 92 EKG Reviewed by me: Yes (Tele: janice martino) Phys Exam - Physical Examination Constitutional: NAD HEENT: moist MMs, sclera anicteric Neck: supple Respiratory: clear to auscultation bilateral Cardiovascular: RRR Gastrointestinal: soft, non-tender Neurological: moves all 4 limbs Psychiatric: normal affect Skin: no rash Dx/Plan (1) Acute blood loss anemia Code(s): D62 - ACUTE POSTHEMORRHAGIC ANEMIA Status: Acute (2) Upper GI bleed Code(s): K92.2 - GASTROINTESTINAL HEMORRHAGE, UNSPECIFIED Status: Acute (3) DM2 (diabetes mellitus, type 2) Status: Chronic Qualifiers: Diabetes mellitus complication status: with kidney complications Diabetes mellitus complication detail: with chronic kidney disease Diabetes mellitus assisted insulin use: with assisted use Chronic kidney disease stage: on chronic dialysis Qualified Code(s): E11.22 - Type 2 diabetes mellitus with diabetic chronic kidney disease; N18.6 - End stage renal disease; Z99.2 - Dependence on renal dialysis; Z99.2 - Dependence on renal dialysis; Z99.2 - Dependence on renal dialysis; N18.6 - End stage renal disease; N18.6 - End stage renal disease; N18.6 - End stage renal disease; Z79.4 - manager long term care (current ) use of insulin; Z79.4 - penitentiary (current) use of insulin; Z79.4 - manager long term care (current) use of insulin; Z79.4 - penitentiary (current) use of insulin; Z99.2 - Dependence on renal dialysis (4) HTN (hypertension) Code(s): I10 - ESSENTIAL (PRIMARY) HYPERTENSION Status: Chronic Qualifiers: Hypertension type: essential hypertension Qualified Code(s): I10 - Essential (primary) hypertension (5) Hypothyroid Code(s): E03.9 - HYPOTHYROIDISM, UNSPECIFIED Status: Chronic Qualifiers: Hypothyroidism type: acquired Qualified Code(s): E03.9 - Hypothyroidism, unspecified (6) PVD (peripheral vascular disease) Code(s): I73.9 - PERIPHERAL VASCULAR DISEASE, UNSPECIFIED Status: Chronic (7) ESRD (end stage renal disease) on dialysis Code(s): N18.6 - END STAGE RENAL DISEASE; Z99.2 - DEPENDENCE ON RENAL DIALYSIS Status: Chronic Comment: Renal consulted for possible HD, i have personally spoken with Dr Ferrell. Will follow up on their recs. - Plan DVT proph w/SCDs * . s/p EGD (and repeat) showing gastric ulcers, Dieulafoy lesion. Continue PPI. s/p extubation. Dialysis per nephrology service. Continue accuchecks, insulin. Monitor vital signs, titrate antihypertensives as needed. Review of Systems - Review of Systems Respiratory: negative: Cough, Dry, Shortness of Breath, Hemoptysis, SOB with Excertion, Pleuritic Pain, Sputum, Wheezing Cardiovascular: negative: Chest Pain, Palpitations, Orthopnea, Paroxysmal Noc. Dyspnea, Edema, Light Headedness Gastrointestinal: negative: Nausea, Vomiting, Abdominal Pain, Diarrhea, Constipation, Melena, Hematochezia - Medications/Allergies Allergies/Adverse Reactions: Allergies Allergy/AdvReac Type Severity Reaction Status Date / Time No Known Allergies Allergy Verified 08/27/17 20:56 Medications: Current Medications Acetaminophen (Tylenol) 650 mg PO Q4H PRN PRN Reason: Headache/Fever or Pain Calcium Acetate (Phoslo) 667 mg PO BID[facility] Last Admin: 08/31/17 07:24 Dose: Not Given Citalopram Hydrobromide (Celexa) 20 mg PO [facility] Last Admin: 08/30/17 20:59 Dose: Not Given Clonazepam (Klonopin) 0.25 mg PO DAILYPRN PRN PRN Reason: Anxiety Dextrose/Water (Dextrose 50%) 25 gm SLOW IVP PRN PRN PRN Reason: Hypoglycemia Docusate Sodium (Colace) 100 mg PO BID [facility] Last Admin: 08/31/17 07:24 Dose: Not Given Famotidine (Pepcid) 20 mg SLOW IVP Q24HR [facility] Last Admin: 08/31/17 07:25 Dose: Not Given Glucagon (Glucagon) 1 mg IM PRN PRN PRN Reason: Hypoglycemia Dextrose/Water (D5w) 1,000 mls @ 0 mls/hr IV .Q0M PRN; As Directed PRN Reason: Hypoglycemia Pantoprazole Sodium 80 mg/Miscellaneous Medication 1 each/ Sodium Chloride 100 mls @ 10 mls/hr IVP INF [facility] Last Admin: 08/31/17 04:35 Dose: 100 mls Insulin Human Lispro (Humalog) 0 units SC .MODERATE SLIDING SC PRN PRN Reason: Moderate Correctional Scale Latanoprost (Xalatan 0.005% Oph Soln) 1 drop EA EYE [facility] Last Admin: 08/30/17 21:00 Dose: 1 drop Levothyroxine Sodium (Synthroid) 125 mcg PO 0600 [facility] Last Admin: 08/31/17 05:38 Dose: Not Given Midodrine (Proamatine) 10 mg PO MoWeFr [facility] Last Admin: 08/29/17 13:12 Dose: Not Given Discontinue Previous Narcotic Pain Medications And Benzodiazepines 1 each FS .ONE [facility] Stop: 09/28/17 11:20 Ondansetron HCl (Zofran) 4 mg IVP Q6H PRN PRN Reason: Nausea/Vomiting Sodium Chloride (Flush - Normal Saline) 10 ml IVF Q12HR [facility] Last Admin: 08/31/17 07:25 Dose: Not Given Sodium Chloride (Flush - Normal Saline) 10 ml IVF PRN PRN PRN Reason: Saline Flush
--- NOTE | 2017-08-31 19:03 | PRG ---
DATE OF SERVICE: 08/31/2017 SUBJECTIVE: The patient was seen and examined, status post extubation, doing well and noted with the following vital signs. PHYSICAL EXAMINATION: VITAL SIGNS: Afebrile with temperature 98.1, pulse 77, respiratory rate 16, blood pressure 91/39 and O2 saturation 98%. HEENT: Unremarkable. CARDIOVASCULAR SYSTEM: First and second heart sounds were heard. RESPIRATORY SYSTEM: Clear to auscultation. DIGESTIVE SYSTEM: Revealed a benign abdomen. EXTREMITIES: No peripheral edema. SKIN: No new gross rash. LYMPHATICS: No peripheral lymphadenopathy. NEUROLOGIC: Alert and oriented. No lateralizing sign. IMPRESSION: 1. End-stage renal disease, hemodialysis dependent on Friday, Friday, and Friday schedule. 2. Acute hemorrhagic anemia in the context of gastrointestinal bleed. PLAN: 1. The patient to be dialyzed tomorrow in accordance with his schedule with no heparin with ultrafil tration as tolerated by hemodynamics. The patient's dialysis to be with a higher potassium bath. 2. Renally, dose all medications per low GFR. 3. Further management will be dependent on the clinical course.
[2017-08-31] MEDS: Pantoprazole 40 MG VIAL IVP SCH (20:18)
[2017-08-31] MEDS: Latanoprost 0.005% Ophth Soln 2.5 ml Bottle EA EYE SCH (20:19)
[2017-08-31] MEDS: Citalopram 20 MG TAB PO SCH (20:21)
[2017-09-01 05:13] LABS: Anion Gap 13 mmol/L (10-20); BUN (Urea Nitrogen) 46 mg/dL (8.4-25.7); Calc. Creatinine Clearance 15 mL/min (70-130); Calcium 9.2 mg/dL (7.8-10.44); Carbon Dioxide 26 mmol/L (23-31); Chloride 104 mmol/L (98-107); Estimated GFR-MDRD 9
[2017-09-01] MEDS ORDERED: Sodium Chloride 0.9% 500 ML IV SCH (08:00)
[2017-09-01] MEDS: Levothyroxine Sodium 125 MCG TAB PO SCH (08:18)
[2017-09-01] MEDS: Pantoprazole 40 MG VIAL IVP SCH ×2 (08:22→21:59)
[2017-09-01] MEDS: Calcium Acetate 667 MG CAP PO SCH ×2 (08:23→18:02)
[2017-09-01] MEDS: Famotidine/PF 20 mg/2ml Vial SLOW IVP SCH (08:23)
[2017-09-01] MEDS: Docusate 100 MG CAP PO SCH ×2 (08:24→21:58)
--- NOTE | 2017-09-01 09:02 | PRG ---
DATE OF SERVICE: 09/01/2017 SUBJECTIVE: Mr. Galarza was extubated yesterday. He is awake. He has difficult time answering quest ions. According to nursing staff, he is somewhat confused. PHYSICAL EXAMINATION: VITAL SIGNS: Temperature 97.2, pulse 67, blood pressure 150/63. A 24 hour intake 428, output 240. HEENT: Unremarkable. NECK: No JVD. LUNGS: Clear. CARDIAC: S1 and S2 regular. ABDOMEN: Soft and distended. EXTREMITIES: No edema. LABORATORY DATA: Sodium 139, potassium 3.7, chloride 104, CO2 26, BUN 46, creatinine 6.1, and glucos e 114. ASSESSMENT: 1. Status post upper gastrointestinal bleeding. 2. Status post acute respiratory failure requiring mechanical ventilation. 3. End-stage renal disease requiring hemodialysis. PLAN: The patient can be transferred out to the intermediate care unit or telemetry unit. Continue hemodialysis. Continue to monitor hemoglobin and hematocrit.
[2017-09-01 09:06] LABS: #Eosinphils 0.2 thou/uL (0.0-0.7); #Lymphocytes 1.1 thou/uL (1.20-3.40); #Monocytes 0.3 thou/uL (0.11-0.59); #Neutrophils 6.9 thou/uL (1.40-6.50); %Basophils 0.2 % (0.0-1.0); %Eosinophils 2.2 % (0.0-10.0); %Lymphocytes 12.7 % (21.0-51.0); Mean Platelet Volume 6.9 fL (7.4-10.4); Red Blood Cell (RBC) Count 2.63 mill/uL (4.70-6.10); White Blood Cell (WBC) Count 8.4 thou/uL (4.8-10.8)
--- NOTE | 2017-09-01 11:49 | PDOC.PN ---
- Subjective Encounter Start Date: 09/01/17 Encounter Start Time: 08:40 Pt seen for followup re: GI bleed. Denies chest pain, shortness of breath, fevers or chills. Denies abdo pain. - Objective MAR Reviewed: Yes Vital Signs & Weight: Vital Signs (12 hours) Temp 09/01/17 04:00 97.2 F L 09/01/17 00:00 98.2 F Weight Admit Weight 195 lb Weight 180 lb 12.8 oz Most Recent Monitor Data Heart Rate from ECG 67 NIBP 150/63 NIBP BP-Mean 84 Respiration from ECG 9 SpO2 89 I&O: 08/31/17 09/01/17 09/02/17 06:59 06:59 06:59 Intake Total 1224.0 428.6 Output Total 0 240 Balance 1224.0 188.6 Result Diagrams: 09/01/17 09:00 09/01/17 03:32 Additional Labs: Accuchecks 08/31/17 08/31/17 23:50 16:22 POC Glucose 85 85 EKG Reviewed by me: Yes (Tele: NSR) Phys Exam - Physical Examination Constitutional: NAD HEENT: moist MMs, oral pharynx no lesions Neck: supple Respiratory: clear to auscultation bilateral Cardiovascular: RRR Gastrointestinal: soft, non-tender, positive bowel sounds Neurological: moves all 4 limbs Psychiatric: normal affect Skin: no rash Dx/Plan (1) Upper GI bleed Code(s): K92.2 - GASTROINTESTINAL HEMORRHAGE, UNSPECIFIED Status: Acute (2) Acute blood loss anemia Code(s): D62 - ACUTE POSTHEMORRHAGIC ANEMIA Status: Acute (3) DM2 (diabetes mellitus, type 2) Status: Chronic Qualifiers: Diabetes mellitus complication status: with kidney complications Diabetes mellitus complication detail: with chronic kidney disease Diabetes mellitus correction insulin use: with correction use Chronic kidney disease stage: on chronic dialysis Qualified Code(s): E11.22 - Type 2 diabetes mellitus with diabetic chronic kidney disease; N18.6 - End stage renal disease; Z99.2 - Dependence on renal dialysis; Z99.2 - Dependence on renal dialysis; Z99.2 - Dependence on renal dialysis; N18.6 - End stage renal disease; N18.6 - End stage renal disease; N18.6 - End stage renal disease; Z79.4 - prison (current ) use of insulin; Z79.4 - prison (current) use of insulin; Z79.4 - long term care phlebotomist (current) use of insulin; Z79.4 - prison (current) use of insulin; Z99.2 - Dependence on renal dialysis (4) HTN (hypertension) Code(s): I10 - ESSENTIAL (PRIMARY) HYPERTENSION Status: Chronic Qualifiers: Hypertension type: essential hypertension Qualified Code(s): I10 - Essential (primary) hypertension (5) Hypothyroid Code(s): E03.9 - HYPOTHYROIDISM, UNSPECIFIED Status: Chronic Qualifiers: Hypothyroidism type: acquired Qualified Code(s): E03.9 - Hypothyroidism, unspecified (6) PVD (peripheral vascular disease) Code(s): I73.9 - PERIPHERAL VASCULAR DISEASE, UNSPECIFIED Status: Chronic (7) ESRD (end stage renal disease) on dialysis Code(s): N18.6 - END STAGE RENAL DISEASE; Z99.2 - DEPENDENCE ON RENAL DIALYSIS Status: Chronic Comment: Renal consulted for possible HD, i have personally spoken with Dr Ferrell. Will follow up on their recs. - Plan PT/OT, out of bed/ambulate, DVT proph w/SCDs * . Hb stable. s/p extubation. having dialysis today. Continue accuchecks, insulin. Review of Systems - Review of Systems Respiratory: negative: Cough, Dry, Shortness of Breath, Hemoptysis, SOB with Excertion, Pleuritic Pain, Sputum, Wheezing Cardiovascular: negative: Chest Pain, Palpitations, Orthopnea, Paroxysmal Noc. Dyspnea, Edema, Light Headedness - Medications/Allergies Allergies/Adverse Reactions: Allergies Allergy/AdvReac Type Severity Reaction Status Date / Time No Known Allergies Allergy Verified 08/27/17 20:56 Medications: Current Medications Acetaminophen (Tylenol) 650 mg PO Q4H PRN PRN Reason: Headache/Fever or Pain Calcium Acetate (Phoslo) 667 mg PO BID-[facility] Last Admin: 09/01/17 08:23 Dose: 667 mg Citalopram Hydrobromide (Celexa) 20 mg PO HS [facility] Last Admin: 08/31/17 20:21 Dose: Not Given Clonazepam (Klonopin) 0.25 mg PO DAILYPRN PRN PRN Reason: Anxiety Dextrose/Water (Dextrose 50%) 25 gm SLOW IVP PRN PRN PRN Reason: Hypoglycemia Docusate Sodium (Colace) 100 mg PO BID [facility] Last Admin: 09/01/17 08:24 Dose: 100 mg Glucagon (Glucagon) 1 mg IM PRN PRN PRN Reason: Hypoglycemia Dextrose/Water (D5w) 1,000 mls @ 0 mls/hr IV .Q0M PRN; As Directed PRN Reason: Hypoglycemia Sodium Chloride (Normal Saline 0.9%) 500 mls @ 0 mls/hr IV .Q0M DANYELL PRN Reason: KVO Insulin Human Lispro (Humalog) 0 units SC .MODERATE SLIDING SC PRN PRN Reason: Moderate Correctional Scale Latanoprost (Xalatan 0.005% Oph Sol) 1 drop EA EYE HS [facility] Last Admin: 08/31/17 20:19 Dose: 1 drop Levothyroxine Sodium (Synthroid) 125 mcg PO 0600 [facility] Last Admin: 09/01/17 08:18 Dose: 125 mcg Midodrine (Proamatine) 10 mg PO MoWeFr [facility] Last Admin: 08/29/17 13:12 Dose: Not Given Ondansetron HCl (Zofran) 4 mg IVP Q6H PRN PRN Reason: Nausea/Vomiting Pantoprazole Sodium (Protonix) 40 mg IVP Q12HR [facility] Last Admin: 09/01/17 08:22 Dose: 40 mg Sodium Chloride (Flush - Normal Saline) 10 ml IVF Q12HR [facility] Last Admin: 09/01/17 08:22 Dose: 10 ml Sodium Chloride (Flush - Normal Saline) 10 ml IVF PRN PRN PRN Reason: Saline Flush
--- NOTE | 2017-09-01 11:52 | PRG ---
DATE OF SERVICE: 09/01/2017 SUBJECTIVE: Mr. Galarza has remained hemodynamically stable. He had a couple of dark stools last nig ht, but no bowel movements today. His hemoglobin has remained stable in fact ended up a little bit a t 8.9. He is currently getting dialysis. Remains a bit confused. PHYSICAL EXAMINATION: VITAL SIGNS: Temperature 97.2, pulse 67, blood pressure 115/54, 97% oxygen saturation on 3 liters na ileana cannula GENERAL: No acute distress. HEART: Regular rate and rhythm. LUNGS: Clear to auscultation bilaterally. ABDOMEN: Soft and nontender to palpation. EXTREMITIES: No peripheral edema. LABORATORY STUDIES: WBC 8.4, hemoglobin up to 8.9, platelets 197. Sodium 139, potassium 3.7, BUN 46 , creatinine 6.09. ASSESSMENT AND PLAN: 1. Gastric ulcers in the fundus with active hemorrhage, status post successful hemostasis with elect rocautery on EGD, 08/30/2017. 2. Dieulafoy lesion in the fundus of the stomach with active bleeding, status post successful hemost asis with cautery on EGD, 08/30/2017. 3. Distal esophagitis. 4. Anemia of gastrointestinal blood loss, stabilized. There is no further evidence of active gastro intestinal bleeding. The patient's diet can be advanced as tolerated. Continue to trend the H&H whi le here. We would continue the IV Protonix while hospitalized and switch to twice daily oral proton pump inhibitor on hospital discharge. We will still plan to follow up biopsy results on the gastric ulcer biopsies. Please call back with any questions or concerns.
[2017-09-01] MEDS: Midodrine HCl 5 MG TAB PO SCH (12:19)
[2017-09-01 13:36] VITALS: BMI 29.2
--- NOTE | 2017-09-01 19:40 | PRG ---
DATE OF SERVICE: 09/01/2017 SUBJECTIVE: The patient was seen and examined today, doing very well, noted with the following vital signs. OBJECTIVE: VITAL SIGNS: Afebrile with temperature 98, pulse 62, blood pressure 130/50, respiratory rate of 14, O2 sat of 93%. HEENT: Unremarkable with moist oral mucosa. Neck is supple. No conjunctival injection or icterus. CARDIOVASCULAR: First and second heart sounds were heard. RESPIRATORY: Clear to auscultation. DIGESTIVE: Revealed a benign abdomen with positive bowel sounds. EXTREMITIES: No peripheral edema. SKIN: No new gross rash. LYMPHATICS: No peripheral lymphadenopathy. IMPRESSION: 1. End-stage renal disease, hemodialysis dependent. 2. Severe acute hemorrhagic anemia, status post GI bleed. PLAN: 1. The patient to continue with dialysis in accordance with his schedule of Friday, Friday and . 2. Further management to be dependent on the clinical course.
[2017-09-01] MEDS: Citalopram 20 MG TAB PO SCH (21:58)
[2017-09-01] MEDS: Latanoprost 0.005% Ophth Soln 2.5 ml Bottle EA EYE SCH (21:58)
[2017-09-02 05:58] LABS: Anion Gap 14 mmol/L (10-20); BUN (Urea Nitrogen) 20 mg/dL (8.4-25.7); Calc. Creatinine Clearance 23 mL/min (70-130); Calcium 9.3 mg/dL (7.8-10.44); Carbon Dioxide 26 mmol/L (23-31); Chloride 103 mmol/L (98-107); Estimated GFR-MDRD 16
[2017-09-02] MEDS: Levothyroxine Sodium 125 MCG TAB PO SCH (06:18)
[2017-09-02 06:29] LABS: #Eosinphils 0.3 thou/uL (0.0-0.7); #Lymphocytes 1.2 thou/uL (1.20-3.40); #Monocytes 0.5 thou/uL (0.11-0.59); #Neutrophils 5.5 thou/uL (1.40-6.50); %Eosinophils 3.6 % (0.0-10.0); %Lymphocytes 16.1 % (21.0-51.0); %Monocytes 6.7 % (0.0-10.0); Hematocrit 28.8 % (42.0-52.0); Macrocytosis SLIGHT = 6-15 cells (100X) (0-5/hpf); Mean Platelet Volume 6.9 fL (7.4-10.4); Red Blood Cell (RBC) Count 2.75 mill/uL (4.70-6.10); White Blood Cell (WBC) Count 7.5 thou/uL (4.8-10.8)
[2017-09-02] MEDS: Calcium Acetate 667 MG CAP PO SCH ×2 (08:50→18:09)
[2017-09-02] MEDS: Docusate 100 MG CAP PO SCH ×2 (08:50→20:31)
--- NOTE | 2017-09-02 13:11 | PDOC.PN ---
- Subjective Encounter Start Date: 09/02/17 Encounter Start Time: 09:20 Pt seen for followup re: GI bleed. Denies chest pain, shortness of breath, fevers or chills. - Objective MAR Reviewed: Yes Vital Signs & Weight: Vital Signs (12 hours) Temp Pulse Resp BP Pulse Ox 09/02/17 11:50 99.3 F 68 20 134/61 97 09/02/17 08:00 97.9 F 68 18 145/68 H 94 L 09/02/17 04:20 94 L 09/02/17 04:00 98.2 F 82 24 H 126/64 94 L Weight Admit Weight 195 lb Weight 180 lb 14.4 oz Most Recent Monitor Data Heart Rate from ECG 62 NIBP 148/55 NIBP BP-Mean 64 Respiration from ECG 14 SpO2 93 I&O: 09/01/17 09/02/17 09/03/17 06:59 06:59 06:59 Intake Total 428.6 627 Output Total 240 175 Balance 188.6 452 Result Diagrams: 09/02/17 05:19 09/02/17 05:19 Additional Labs: Accuchecks 09/02/17 09/02/17 09/02/17 11:50 05:40 00:09 POC Glucose 105 90 99 09/01/17 17:09 POC Glucose 103 EKG Reviewed by me: Yes (Tele: NSR) Phys Exam - Physical Examination Constitutional: NAD HEENT: moist MMs Neck: supple Respiratory: clear to auscultation bilateral Cardiovascular: RRR Gastrointestinal: soft Musculoskeletal: pulses present Neurological: moves all 4 limbs Psychiatric: normal affect Dx/Plan (1) Upper GI bleed Code(s): K92.2 - GASTROINTESTINAL HEMORRHAGE, UNSPECIFIED Status: Acute (2) DM2 (diabetes mellitus, type 2) Status: Chronic Qualifiers: Diabetes mellitus complication status: with kidney complications Diabetes mellitus complication detail: with chronic kidney disease Diabetes mellitus intermediate project manager insulin use: with intermediate project manager use Chronic kidney disease stage: on chronic dialysis Qualified Code(s): E11.22 - Type 2 diabetes mellitus with diabetic chronic kidney disease; N18.6 - End stage renal disease; Z99.2 - Dependence on renal dialysis; Z99.2 - Dependence on renal dialysis; Z99.2 - Dependence on renal dialysis; N18.6 - End stage renal disease; N18.6 - End stage renal disease; N18.6 - End stage renal disease; Z79.4 - exterminator helper termite (current ) use of insulin; Z79.4 - penitentiary (current) use of insulin; Z79.4 - exterminator helper termite (current) use of insulin; Z79.4 - exterminator helper termite (current) use of insulin; Z99.2 - Dependence on renal dialysis (3) HTN (hypertension) Code(s): I10 - ESSENTIAL (PRIMARY) HYPERTENSION Status: Chronic Qualifiers: Hypertension type: essential hypertension Qualified Code(s): I10 - Essential (primary) hypertension (4) Hypothyroid Code(s): E03.9 - HYPOTHYROIDISM, UNSPECIFIED Status: Chronic Qualifiers: Hypothyroidism type: acquired Qualified Code(s): E03.9 - Hypothyroidism, unspecified (5) PVD (peripheral vascular disease) Code(s): I73.9 - PERIPHERAL VASCULAR DISEASE, UNSPECIFIED Status: Chronic (6) ESRD (end stage renal disease) on dialysis Code(s): N18.6 - END STAGE RENAL DISEASE; Z99.2 - DEPENDENCE ON RENAL DIALYSIS Status: Chronic Comment: Renal consulted for possible HD, i have personally spoken with Dr Ferrell. Will follow up on their recs. (7) Acute blood loss anemia Code(s): D62 - ACUTE POSTHEMORRHAGIC ANEMIA Status: Resolved - Plan PT/OT, out of bed/ambulate, DVT proph w/SCDs * . Hb stable. Concern re: aspiration, await swallow eval. Continue accuchecks, insulin. Resume home meds once swallow improves. Review of Systems - Review of Systems Constitutional: negative: Fever, Chills, Sweats, Weakness, Malaise Respiratory: Cough. negative: Dry, Shortness of Breath, Hemoptysis, SOB with Excertion, Pleuritic Pain, Sputum, Wheezing Cardiovascular: negative: Chest Pain, Palpitations, Orthopnea, Paroxysmal Noc. Dyspnea, Edema, Light Headedness - Medications/Allergies Allergies/Adverse Reactions: Allergies Allergy/AdvReac Type Severity Reaction Status Date / Time No Known Allergies Allergy Verified 08/27/17 20:56 Medications: Current Medications Acetaminophen (Tylenol) 650 mg PO Q4H PRN PRN Reason: Headache/Fever or Pain Calcium Acetate (Phoslo) 667 mg PO BID-[facility] Last Admin: 09/02/17 08:50 Dose: 667 mg Citalopram Hydrobromide (Celexa) 20 mg PO HS [facility] Last Admin: 09/01/17 21:58 Dose: 20 mg Clonazepam (Klonopin) 0.25 mg PO DAILYPRN PRN PRN Reason: Anxiety Dextrose/Water (Dextrose 50%) 25 gm SLOW IVP PRN PRN PRN Reason: Hypoglycemia Docusate Sodium (Colace) 100 mg PO BID [facility] Last Admin: 09/02/17 08:50 Dose: 100 mg Glucagon (Glucagon) 1 mg IM PRN PRN PRN Reason: Hypoglycemia Dextrose/Water (D5w) 1,000 mls @ 0 mls/hr IV .Q0M PRN; As Directed PRN Reason: Hypoglycemia Sodium Chloride (Normal Saline 0.9%) 500 mls @ 0 mls/hr IV .Q0M DANYELL PRN Reason: KVO Insulin Human Lispro (Humalog) 0 units SC .MODERATE SLIDING SC PRN PRN Reason: Moderate Correctional Scale Latanoprost (Xalatan 0.005% [facility]) 1 drop EA EYE [facility] Last Admin: 09/01/17 21:58 Dose: 1 drop Levothyroxine Sodium (Synthroid) 125 mcg PO 0600 [facility] Last Admin: 09/02/17 06:18 Dose: 125 mcg Midodrine (Proamatine) 10 mg PO MoWeFr [facility] Last Admin: 09/01/17 12:19 Dose: 10 mg Ondansetron HCl (Zofran) 4 mg IVP Q6H PRN PRN Reason: Nausea/Vomiting Pantoprazole Sodium (Protonix) 40 mg IVP Q12HR [facility] Last Admin: 09/01/17 21:59 Dose: 40 mg Sodium Chloride (Flush - Normal Saline) 10 ml IVF Q12HR [facility] Last Admin: 09/02/17 08:50 Dose: 10 ml Sodium Chloride (Flush - Normal Saline) 10 ml IVF PRN PRN PRN Reason: Saline Flush
[2017-09-02] MEDS: Pantoprazole 40 MG VIAL IVP SCH (16:46)
--- NOTE | 2017-09-02 17:33 | RAD ---
EXAM: MODIFIED BARIUM SWALLOW: 09/02/17 HISTORY: Dysphagia, oropharyngeal phase. Feeding difficulties. Evaluate for aspiration. EXPOSURE: 2 minutes. 1.322 Gy*cm2. FINDINGS: In the presence of speech pathologist, patient was administered thin liquids, nectar thick and puddin g consistencies. There is evidence of penetration with the aforementioned consistencies. No definite evidence of aspiration. IMPRESSION: Please refer to speech pathology report for feeding recommendation. POS: [facility]
[2017-09-02] MEDS: Citalopram 20 MG TAB PO SCH (20:31)
[2017-09-02] MEDS: Latanoprost 0.005% Ophth Soln 2.5 ml Bottle EA EYE SCH (20:31)
--- NOTE | 2017-09-03 00:24 | PRG ---
DATE OF SERVICE: 09/02/2017 SUBJECTIVE: This patient is seen and examined with no new complaint noted with the following vital s igns. PHYSICAL EXAMINATION: VITAL SIGNS: Afebrile with temperature 98.3, pulse 68, respiratory rate of 20, blood pressure 134/61 , O2 sat 97%. HEENT: Unremarkable with moist oral mucosa. CARDIOVASCULAR SYSTEM: First and second heart sounds were heard. RESPIRATORY SYSTEM: Clear to auscultation. DIGESTIVE SYSTEM: Revealed a benign abdomen with positive bowel sounds. EXTREMITIES: No peripheral edema. SKIN: No new gross rash. LYMPHATICS: No peripheral lymphadenopathy. IMPRESSION: 1. End-stage renal disease on hemodialysis. 2. GI bleed, status post endoscopy. 3. Hypertension, stable. PLAN: 1. Patient to continue with his regular hemodialysis on Friday, Friday, and Friday schedule. 2. Further management to be dependent on the clinical course.
[2017-09-03 05:16] LABS: #Eosinphils 0.3 thou/uL (0.0-0.7); #Lymphocytes 1.5 thou/uL (1.20-3.40); #Monocytes 0.5 thou/uL (0.11-0.59); #Neutrophils 4.5 thou/uL (1.40-6.50); %Basophils 0.5 % (0.0-1.0); %Eosinophils 4.3 % (0.0-10.0); %Lymphocytes 22.2 % (21.0-51.0); %Monocytes 7.6 % (0.0-10.0); Hematocrit 27.5 % (42.0-52.0); Mean Platelet Volume 6.9 fL (7.4-10.4); Red Blood Cell (RBC) Count 2.64 mill/uL (4.70-6.10); White Blood Cell (WBC) Count 6.9 thou/uL (4.8-10.8)
[2017-09-03 05:35] LABS: Anion Gap 12 mmol/L (10-20); BUN (Urea Nitrogen) 24 mg/dL (8.4-25.7); Calc. Creatinine Clearance 17 mL/min (70-130); Calcium 9.6 mg/dL (7.8-10.44); Carbon Dioxide 29 mmol/L (23-31); Chloride 101 mmol/L (98-107); Estimated GFR-MDRD 11
[2017-09-03] MEDS: Levothyroxine Sodium 125 MCG TAB PO SCH (05:43)
--- NOTE | 2017-09-03 13:23 | DIS ---
DATE OF ADMISSION: 08/27/2017 DATE OF DISCHARGE: 09/03/2017 PRIMARY CARE PROVIDER: Dr. Stephan Morales. DISCHARGE DIAGNOSIS: Upper gastrointestinal bleed. INVESTIGATIONS DURING THIS HOSPITALIZATION: 1. EGD on 08/29/2017, which showed large old and fresh blood clots filling the gastric fundus and di stal esophagitis. He also had mild erosive duodenitis, nonbleeding. 2. Intubation for airway protection. 3. Repeat EGD on 08/30/2017, which showed 2 deep ulcers in the gastric fundus, one with a visible ve ssel and active oozing, visible vessel was cauterized and biopsies were obtained from the ulcer edge. He also had a single Dieulafoy's lesion in the gastric fundus with active bleeding, contrast with g ood hemostasis achieved. He also had severe distal esophagitis without bleeding, no esophageal or ga stric varices and mild duodenitis. CONDITION OF PATIENT AT THE TIME OF DISCHARGE: Stable. I assessed Mr. Galarza on the day of discharg e. He denies any chest pain or shortness of breath. Vital signs are stable. S1 and S2 are heard, r egular. Lungs are clear to auscultation bilaterally. HOSPITAL COURSE: Mr. Galarza is a pleasant 61-year-old gentleman, who was admitted to [facility] on 09/03/2017 for upper GI bleed. He was seen by GI service, Dr. Adama Golden, and underwent EGD on 08/29/2017 and repeat EGD on 08/30/2017, results summarized above. Pathology report on the specimen from 08/30/2017 showed mild chronic gastritis with focal activity in the area of ero sammi. No Helicobacter pylori organisms were identified. He was admitted to the CCU following intubation. He was subsequently extubated and transferred to te lemetry floor. He continued to improve, and is being discharged back to his long-term care facility in a stable condition. He was also seen by Nephrology, Dr. Blank, for maintenance hemodialysis. On the day of discharge, he has white count 6900, hemoglobin 9.0, platelet count 231,000. Normal nataliia ctrolytes and elevated creatinine of 5.24. His lipase was elevated on 08/28/2017 at 403. DISCHARGE MEDICATIONS: Pantoprazole 40 mg 2 times a day, acetaminophen p.r.n., Maalox 30 mL at bedti me, Tessalon 100 mg 3 times a day as needed, PhosLo 667 mg 2 times a day, citalopram 20 mg at bedtime , clonazepam 0.25 mg daily, guaifenesin p.r.n., NovoLog insulin by sliding scale, latanoprost eye john ps 1 drop to each eye at bedtime, levothyroxine 125 mcg daily, loperamide p.r.n., midodrine 10 mg Fri, Friday, and Friday, multivitamins 1 tablet daily, Zofran p.r.n., and tramadol p.r.n. Many thanks for allowing me to participate in your patient's care. Please feel free to contact me wi th any questions or concerns. DISCHARGE DESTINATION: Home, which is a long-term care facility. TOTAL AMOUNT OF TIME SPENT COORDINATING THIS DISCHARGE: 38 minutes.
[2017-09-03 13:33] VITALS: BP 111/55; TEMP 97
[2017-09-03] MEDS: Docusate 100 MG CAP PO SCH (13:33)
[2017-09-03] MEDS: Calcium Acetate 667 MG CAP PO SCH (13:33)
[2017-09-03] MEDS: Midodrine HCl 5 MG TAB PO SCH (13:38)
--- NOTE | 2017-09-03 23:34 | PRG ---
DATE OF SERVICE: 09/03/2017 SUBJECTIVE: The patient was seen and examined, noted with the following vital signs. PHYSICAL EXAMINATION: VITAL SIGNS: Afebrile with temperature 98.6, pulse 82, respiratory rate of 18, O2 sat on 99%, blood pressure 111/55. HEENT: Unremarkable with moist oral mucosa. No conjunctival injection or icterus. NECK: Supple. CARDIOVASCULAR: First and second heart sounds were heard. RESPIRATORY: Clear to auscultation. DIGESTIVE: Revealed a benign abdomen with positive bowel sounds. EXTREMITIES: No peripheral edema. SKIN: No new gross rash. LYMPHATICS: No peripheral lymphadenopathy. LABORATORY INVESTIGATIONS: Showed a hemoglobin of 9.0. Chemistry showed a creatinine of 5.24. IMPRESSION: 1. End-stage renal disease, hemodialysis dependent. 2. Anemia in the context of gastrointestinal bleeding. PLAN: 1. Patient to be dialyzed today and afterwards patient can be discharged to continue with outpatient hemodialysis. 2. Further management to be dependent on the clinical course.
== END 2017-09-03 14:43 | DRG 377 ==
LOC: ERS 13:42 → 2SW 20:32 → OBSVTOIN 22:40 → 2NO 08-28 00:30 → CCU 08-29 09:26 → 2NO 09-01 18:37
PROVIDERS: ADMIT Internal Medicine; ATTEND Internal Medicine
PROC: 0DJ08ZZ Inspection of Upper Intestinal Tract, Via Natural or Artificial Opening Endoscopic (ICD-10-PCS; principal; 2017-08-29)
PROC: 5A1945Z Respiratory Ventilation, 24-96 Consecutive Hours (ICD-10-PCS; 2017-08-29)
PROC: 30233N1 Transfusion of Nonautologous Red Blood Cells into Peripheral Vein, Percutaneous Approach (ICD-10-PCS; 2017-08-29)
PROC: 0W3P8ZZ Control Bleeding in Gastrointestinal Tract, Via Natural or Artificial Opening Endoscopic (ICD-10-PCS; 2017-08-30)
PROC: 0DB68ZX Excision of Stomach, Via Natural or Artificial Opening Endoscopic, Diagnostic (ICD-10-PCS; 2017-08-30)
DX: K25.4 Chronic or unspecified gastric ulcer with hemorrhage (principal); N18.6 End stage renal disease; J95.821 Acute postprocedural respiratory failure; I12.0 Hypertensive chronic kidney disease with stage 5 chronic kidney disease or end stage renal disease; E11.22 Type 2 diabetes mellitus with diabetic chronic kidney disease; D62 Acute posthemorrhagic anemia; K31.82 Dieulafoy lesion (hemorrhagic) of stomach and duodenum; E11.51 Type 2 diabetes mellitus with diabetic peripheral angiopathy without gangrene; K20.9 Esophagitis, unspecified; E03.9 Hypothyroidism, unspecified; M19.90 Unspecified osteoarthritis, unspecified site; Z99.2 Dependence on renal dialysis; Z66 Do not resuscitate; K29.80 Duodenitis without bleeding; E87.6 Hypokalemia; H40.9 Unspecified glaucoma; Z79.4 Long term (current) use of insulin; E66.9 Obesity, unspecified; Z68.31 Body mass index [BMI] 31.0-31.9, adult; E78.5 Hyperlipidemia, unspecified
CPT/HCPCS: 36415; 36416; 36430; 71010; 74176; 74230; 76700; 80048; 80053; 80061; 82553; 82805; 83690; 83735; 84484; 85025; 86850; 86900; 86901; 88305; 88312; 90935; 93005; 93306; 94002; 94003; A4216; C9113; G0257; G8978-GP-CI; G8979-GP-CI; G8980-GP-CI; G8996-GN-CI; G8996-GN-CN; G8997-GN-CI; G8997-GN-CJ; J1644; J2060; J2405; J2704; J2765; J7050; P9016; S0028

== ENCOUNTER 2017-10-14 10:13 | Day surgery (SDC) | payer MEDICARE, MEDICAID ==
[2017-10-13 15:57] VITALS: BMI 31.6
[2017-10-14] MEDS ORDERED: PROPOFOL 200 MG/20 ML VIAL ONE (15:43)
--- NOTE | 2017-10-14 18:12 | OP ---
DATE OF PROCEDURE: 10/14/2017 GI ENDOSCOPY NOTE SURGEON: Adama Golden M.D. CAR PINCHER SURGEON: None. PROCEDURE: Esophagogastroduodenoscopy, diagnostic. INDICATION: Followup gastric ulcers. MEDICATIONS: See anesthesia record. FINDINGS: After discussion of the risks, benefits and alternatives of the procedure, informed consen t was obtained and witnessed. Pre-endoscopic cardiopulmonary examination was satisfactory. Timeout was performed before sedation was achieved. Sedation was achieved with anesthesia assistance in the endoscopy unit. A Pentax adult upper endoscope was placed into the oropharynx and passed through the cricopharyngeus under direct visualization. The esophageal mucosa appeared normal throughout with a normal-appearing Z-line. There was no evidence of any esophageal varices. The endoscope was then a dvanced into the stomach. Forward and retroflexed views of the entire gastric mucosa were obtained. The previously visualized gastric ulcerations have completely healed. There is no further overt gas tric ulcer. There were no gastric erosions. There is some diffuse erythema throughout the stomach w ith no evidence of bleeding, no stigmata for bleeding. The endoscope was passed through the pylorus and into the duodenal bulb which shows diffuse moderate erythema as well, but no erosions or ulcerati ons. The second portion of the duodenum appears normal. The upper endoscope was then completely wit hdrawn and the patient allowed to recover. The patient tolerated the procedure well. There were no immediate post-procedure complications. IMPRESSION: 1. Complete healing of previously visualized gastric ulcers. 2. Diffuse gastric erythema with no erosions or ulcerations. 3. Moderate duodenitis. RECOMMENDATIONS: 1. Continue PPI once daily dosing indefinitely. 2. Follow up in GI Clinic as needed in the future.
== END 2017-10-14 14:29 ==
LOC: SDC 10:13
PROVIDERS: ATTEND Internal Medicine
PROC: 0DJ08ZZ Inspection of Upper Intestinal Tract, Via Natural or Artificial Opening Endoscopic (ICD-10-PCS; principal; 2017-10-14)
DX: K29.80 Duodenitis without bleeding (principal); G40.909 Epilepsy, unspecified, not intractable, without status epilepticus; E03.9 Hypothyroidism, unspecified; E11.9 Type 2 diabetes mellitus without complications; I10 Essential (primary) hypertension; N28.9 Disorder of kidney and ureter, unspecified; M19.90 Unspecified osteoarthritis, unspecified site
CPT/HCPCS: J2704

== ENCOUNTER 2018-03-06 15:55 | Emergency (ER) | payer MEDICARE, OTHER ==
[2018-03-06 17:00] LABS: #Basophils 0.1 thou/uL (0.0-0.2); #Eosinphils 0.1 thou/uL (0.0-0.7); #Lymphocytes 1.6 thou/uL (1.20-3.40); #Monocytes 0.5 thou/uL (0.11-0.59); #Neutrophils 3.1 thou/uL (1.40-6.50); %Basophils 1.1 % (0.0-1.0); %Eosinophils 2.5 % (0.0-10.0); %Lymphocytes 29.4 % (21.0-51.0); %Monocytes 9.5 % (0.0-10.0); %Neutrophils 57.6 % (42.0-75.0); Hemoglobin 10.4 g/dL (14.0-18.0); Mean Corpuscular HGB CONC 33.8 g/dL (32.0-36.0); Mean Corpuscular Hemoglobin 36.4 pg (27.0-31.0); Mean Platelet Volume 6.7 fL (7.4-10.4); Platelet Count 236 thou/uL (130-400); RBC Distribution Width 13.2 % (11.5-14.5); Red Blood Cell (RBC) Count 2.86 mill/uL (4.70-6.10); White Blood Cell (WBC) Count 5.4 thou/uL (4.8-10.8)
--- NOTE | 2018-03-06 17:05 | RAD ---
PORTABLE CHEST ONE VIEW 03/06/18 at 3:54 p.m. HISTORY: Chest pain. FINDINGS: The heart size is normal. the aorta is tortuous. No focal areas of consolidation, pneumothorax or ple ural effusions are seen. IMPRESSION: No radiographic evidence of acute cardiopulmonary process. POS: [facility]
[2018-03-06 17:17] LABS: MDiff Complete? YES; Macrocytosis SLIGHT = 6-15 cells (100X) (0-5/hpf); PLT Morphology Comment Appears Adequate; Polychromasia SLIGHT = 2-3 cells (100X) (0-2/hpf)
[2018-03-06 17:18] LABS: ALT (SGPT) 11 U/L (8-55); AST (SGOT) 17 U/L (5-34); Albumin 4.1 g/dL (3.4-4.8); Alkaline Phosphatase 127 U/L (40-150); Anion Gap 16 mmol/L (10-20); BUN (Urea Nitrogen) 26 mg/dL (8.4-25.7); Bilirubin, Total 0.5 mg/dL (0.2-1.2); CK (CPK) 35 U/L (30-200); Calc. Creatinine Clearance 0 mL/min (70-130); Calcium 9.3 mg/dL (7.8-10.44); Carbon Dioxide 30 mmol/L (23-31); Chloride 95 mmol/L (98-107); Estimated GFR-MDRD 18; Globulin 3.1 g/dL (2.4-3.5); Glucose 138 mg/dL (80-115); Lipase 58 U/L (8-78); Potassium 4.7 mmol/L (3.5-5.1); Protein, Total 7.2 g/dL (5.8-8.1); Sodium 136 mmol/L (136-145)
[2018-03-06 17:22] LABS: CKMB 0.8 ng/mL (0-6.6); Troponin I Less than 0.010 ng/mL (< 0.028)
== END 2018-03-06 18:15 | disposition home or self-care (01) ==
LOC: ERS 15:55
DX: R07.9 Chest pain, unspecified (principal); E11.22 Type 2 diabetes mellitus with diabetic chronic kidney disease; I12.0 Hypertensive chronic kidney disease with stage 5 chronic kidney disease or end stage renal disease; N18.6 End stage renal disease; G89.29 Other chronic pain; I73.9 Peripheral vascular disease, unspecified; E03.9 Hypothyroidism, unspecified; M19.90 Unspecified osteoarthritis, unspecified site; F32.9 Major depressive disorder, single episode, unspecified; G47.00 Insomnia, unspecified; Z79.891 Long term (current) use of opiate analgesic; Z79.899 Other long term (current) drug therapy; Z79.4 Long term (current) use of insulin
CPT/HCPCS: 36415; 71045; 80053; 82553; 83690; 83880; 84484; 85025; 93005; C1751

== ENCOUNTER 2018-03-26 19:45 | Observation (INO) | payer MEDICARE, MEDICAID ==
--- NOTE | 2018-03-26 21:02 | CT ---
CT BRAIN NONCONTRAST: DATE: 03/26/18 TIME: 8:27 p.m. HISTORY: 62-year-old male with altered mental status, combativeness. COMPARISON: 07/22/18 FINDINGS: Old right frontal craniotomy changes. Moderate sized regions of encephalomalacia and gliosis in the m edial, anterior inferior aspects of the bilateral frontal lobes. Ex vacuo dilation of the frontal hor n of the left lateral ventricle due to adjacent small region of encephalomalacia and gliosis lateral to it inferiorly. No obstructive hydrocephalus. No acute intra-axial or extra-axial hemorrhage. No ma ss effect, midline shift, or extra-axial fluid collection. No acute calvarial fracture. No interval c hange overall. IMPRESSION: 1. No acute intracranial findings. 2. Old traumatic injuries of the bifrontal cerebrum. NIRMAL Zarate POS: [facility]
--- NOTE | 2018-03-26 21:03 | RAD ---
RADIOGRAPH CHEST 1 VIEW: 03/26/18 HISTORY: 62-year-old male with altered mental status. FINDINGS: The thoracic aorta is tortuous and ectatic. There is no evidence of air space density, pneumothorax, or pulmonary edema. The lateral costophrenic angles are sharp. IMPRESSION: 1) No acute pulmonary findings. 2) Ectasia of thoracic aorta. alina [] POS: [facility]
[2018-03-26 21:53] LABS: #Basophils 0.1 thou/uL (0.0-0.2); #Eosinphils 0.2 thou/uL (0.0-0.7); #Lymphocytes 1.7 thou/uL (1.20-3.40); #Monocytes 0.5 thou/uL (0.11-0.59); #Neutrophils 3.2 thou/uL (1.40-6.50); %Basophils 1.2 % (0.0-1.0); %Lymphocytes 29.5 % (21.0-51.0); %Monocytes 9.4 % (0.0-10.0); %Neutrophils 55.8 % (42.0-75.0); Hemoglobin 9.6 g/dL (14.0-18.0); Mean Corpuscular HGB CONC 34.8 g/dL (32.0-36.0); Mean Corpuscular Hemoglobin 37.5 pg (27.0-31.0); Mean Platelet Volume 7.1 fL (7.4-10.4); Platelet Count 209 thou/uL (130-400); RBC Distribution Width 12.1 % (11.5-14.5); Red Blood Cell (RBC) Count 2.55 mill/uL (4.70-6.10); White Blood Cell (WBC) Count 5.7 thou/uL (4.8-10.8)
[2018-03-26 22:23] LABS: ALT (SGPT) 12 U/L (8-55); AST (SGOT) 15 U/L (5-34); Acetaminophen Less than 6.0 mcg/mL (10.0-30.0); Alcohol Less than 10 mg/dL (Less than 10); Alkaline Phosphatase 155 U/L (40-150); Anion Gap 21 mmol/L (10-20); BUN (Urea Nitrogen) 55 mg/dL (8.4-25.7); Bilirubin, Total 0.4 mg/dL (0.2-1.2); Calc. Creatinine Clearance 0 mL/min (70-130); Calcium 8.4 mg/dL (7.8-10.44); Carbon Dioxide 25 mmol/L (23-31); Chloride 101 mmol/L (98-107); Estimated GFR-MDRD 11; Globulin 2.9 g/dL (2.4-3.5); Glucose 131 mg/dL (80-115); Potassium 5.7 mmol/L (3.5-5.1); Protein, Total 6.9 g/dL (5.8-8.1); Salicylate Less than 8.0 mg/dL (15.0-30.0); Sodium 141 mmol/L (136-145)
[2018-03-26 22:57] LABS: CK (CPK) 51 U/L (30-200)
[2018-03-26 22:59] LABS: Bilirubin Negative (Negative); Blood, Urine Negative (Negative); Clarity CLEAR (Clear); Glucose, Urine (Dipstick) 100 mg/dL (Negative); Leukocyte Trace (Negative); Nitrite Negative (Negative); Protein, Urine (Dipstick) 100 mg/dL (Neg-Trace); Specific Gravity, Urine 1.008 (1.002-1.036); Urobilinogen 0.2 mg/dL (0.2-1.0); pH, Urine 8.5 (5.0-9.0)
[2018-03-26 23:01] LABS: Bacteria/HPF None Seen HPF (None Seen); Hyaline Casts/LPF 0-3 HYALINE CAST LPF (0-3 Hyaline); Pathc Cast-AUWi Flag 0.14 (0-2.49); RBC/HPF 0-3 HPF (0-3); Squamous Epithelial None Seen HPF (0-3)
[2018-03-26 23:08] LABS: Amphetamine Not Detected (NotDetected); Barbiturates Screen Not Detected (NotDetected); Benzodiazepine Screen Not Detected (NotDetected); Cocaine Metabolite Screen Not Detected (NotDetected); Medtox Control Line Valid? VALID (VALID); Medtox Reader # READER 1; Methadone Not Detected (NotDetected); Methamphetamine Not Detected (NotDetected); Opiate Screen Not Detected (NotDetected); Oxycodone Screen Not Detected (NotDetected); Phencyclidine (PCP) Not Detected (NotDetected); THC/Cannabinoid Screen Not Detected (NotDetected); Tricyclic Screen Not Detected (NotDetected)
[2018-03-26] MEDS ORDERED: Dextrose 50% Abboject 50 ML SYRINGE ONE (23:16)
[2018-03-26] MEDS ORDERED: Insulin Regular 300 UNITS/3 ML VIAL ONE (23:16)
[2018-03-27] MEDS ORDERED: Acetaminophen 325 MG TAB PO PRN ×2 (00:44→00:49)
[2018-03-27] MEDS ORDERED: Ondansetron HCl/PF 4 MG/2 ML Vial IVP PRN (00:44)
[2018-03-27] MEDS ORDERED: guaiFENesin 100 MG/5 ML UDCUP PO PRN (00:49)
[2018-03-27] MEDS ORDERED: Ondansetron ODT 4 MG TAB PO PRN (00:49)
[2018-03-27] MEDS ORDERED: traMADol HCl 50 MG TAB PO PRN (00:49)
[2018-03-27] MEDS ORDERED: Loperamide HCl 2 MG CAP PO PRN (00:49)
[2018-03-27] MEDS ORDERED: Dextrose 50% Abboject 50 ML SYRINGE SLOW IVP PRN (01:50)
[2018-03-27] MEDS ORDERED: HumaLOG 300 UNITS/3 ML VIAL SC PRN (01:50)
[2018-03-27] MEDS ORDERED: Dextrose 5% in Water 1,000 ML IV PRN (01:50)
[2018-03-27 02:16] LABS: #Eosinphils 0.2 thou/uL (0.0-0.7); #Lymphocytes 2.1 thou/uL (1.20-3.40); #Monocytes 0.7 thou/uL (0.11-0.59); #Neutrophils 3.1 thou/uL (1.40-6.50); %Basophils 0.8 % (0.0-1.0); %Lymphocytes 34.5 % (21.0-51.0); %Monocytes 10.6 % (0.0-10.0); %Neutrophils 50.1 % (42.0-75.0); Hemoglobin 9.6 g/dL (14.0-18.0); Mean Corpuscular HGB CONC 33.7 g/dL (32.0-36.0); Mean Corpuscular Hemoglobin 36.5 pg (27.0-31.0); Mean Platelet Volume 7.1 fL (7.4-10.4); Platelet Count 203 thou/uL (130-400); RBC Distribution Width 12.3 % (11.5-14.5); Red Blood Cell (RBC) Count 2.63 mill/uL (4.70-6.10); White Blood Cell (WBC) Count 6.1 thou/uL (4.8-10.8)
[2018-03-27 02:17] VITALS: BMI 36.8
[2018-03-27 02:39] LABS: Troponin I 0.025 ng/mL (< 0.028)
[2018-03-27 02:51] LABS: Anion Gap 19 mmol/L (10-20); BUN (Urea Nitrogen) 58 mg/dL (8.4-25.7); Calc. Creatinine Clearance 18 mL/min (70-130); Calcium 8.6 mg/dL (7.8-10.44); Carbon Dioxide 26 mmol/L (23-31); Chloride 102 mmol/L (98-107); Estimated GFR-MDRD 10; Glucose 68 mg/dL (80-115); Potassium 4.9 mmol/L (3.5-5.1); Sodium 142 mmol/L (136-145)
--- NOTE | 2018-03-27 03:36 | HP ---
PRIMARY CARE PHYSICIAN: Dr. Andrew Rothman. CODE STATUS: FULL code. TIME OF EVALUATION: 12:00 a.m. CHIEF COMPLAINT: Altered mental status and chest pain. Information has been gathered from the nursing staff, ER doctor, records. The patient speaks Kazakh, but answers are not very coherent. Unclear what the baseline is for the patient. HISTORY OF PRESENT ILLNESS: This is a 62-year-old male patient with past medical history of multiple comorbidities including end-stage renal disease, on hemodialysis, followed by Dr. Soriano. Also, the patient has hypothyroidism , diabetes, hypertension, muscle wasting, arthropathy, epilepsy, CVA. The patient came to the hospital, sent from the halfway, because the patient became aggressive. The nursing staff could not understand why the patient had been acting like that. He was combative, occasionally reported having seizure- like activity. It was not reported by the EMS. The patient has had no seizures in the ER. By the time of my examination, the patient is able to answer yes or no questions, but they are not very coherent, no clear triggers, no alleviating factors. As reported, symptoms started suddenly. REVIEW OF SYSTEMS: Unable to obtain since the patient is unable to give a coherent history. PAST MEDICAL HISTORY: 1. End-stage renal disease, on hemodialysis. 2. Hypothyroidism. 3. Diabetes. 4. Insomnia. 5. Hypertension. 6. PVD. 7. Dyspepsia. 8. Muscle wasting, arthropathy. 9. Glaucoma. 10. Epilepsy. 11. CVA. PAST SURGICAL HISTORY: AV fistula in left upper arm, fracture of the right femur, joint replacement. PSYCHIATRIC HISTORY: Depression. SOCIAL HISTORY: No alcohol, no drug use. No smoking history. The patient lives at [facility]. FAMILY HISTORY: Unable to obtain. The patient is unable to give a coherent history. ALLERGIES: No known drug allergies reported. MEDICATIONS: 1. Levothyroxine 125 mcg daily. 2. Maalox oral suspension 30 mL as needed. 3. Midodrine 10 mg one tablet orally Friday, Friday, and Friday. 4. Multivitamin 1 tablet once a day. 5. NovoLog, unknown dose. 6. Zofran 4 mg q.6 hours as needed. 7. Tramadol 50 mg q.6. hours p.r.n. 8. Tylenol 325 mg 2 times a day. 9. Protonix 40 mg once a day. 10. Renvela 800 mg once a day. 11. Sensipar 30 mg once a day. 12. Keppra 1 gram orally 2 times a day. 13. Acetaminophen 650 mg q.6 hours p.r.n. 14. Citalopram 20 mg once a day. 15. Latanoprost ophthalmic 1 drop in both eyes once a day. PHYSICAL EXAMINATION: VITAL SIGNS: On presentation, blood pressure 130/69, heart rate 76, respiratory rate 17, temperature 97.9. GENERAL APPEARANCE: The patient is calm, alert, disoriented. HEENT: Eyes, normal conjunctivae. Moist oral mucosa. RESPIRATORY: Bilateral air entry. No rales, no wheezing. Symmetric expansion. CARDIOVASCULAR: Normal rate, regular rhythm. No gallop. No edema. ABDOMEN: Soft. Normal bowel sounds. MUSCULOSKELETAL: Baseline range of motion and strength. No tenderness. SKIN: Warm and intact. No pallor, no rash, no redness. NEUROLOGIC: Baseline is unknown. The patient has some slurred speech. The patient has a history of stroke. No evidence of reported new focal weakness. PSYCHIATRIC: The patient is in good mood. Not anxious. Not agitated at this point. EKG was discussed with the performing physician from ER. The patient has normal sinus rhythm at a rate of 75. T-waves are normal. No evidence of any acute ischemic events. Prolonged QT. Brain CT was done and revealed no acute intracranial findings, old traumatic injuries in the bifrontal cerebrum. Chest x-ray was reviewed. The patient had no acute pulmonary findings. Ectasia of thoracic aorta. LABORATORY DATA: Reviewed. White count 5.7, hemoglobin 9.6, hematocrit 27.6, platelet count 209. Sodium 141, potassium 5.7, chloride 101, carbon dioxide 25 , anion gap 21, BUN 55, creatinine 5.39, GFR 11, glucose 139, calcium 8.4, total bilirubin 0.4, AST 15, ALT 12, alkaline phosphatase 155, CK 51, serum total protein 6.9, albumin 4.0, globulin 2.9, albumin globulin ratio 1.4, TSH 3.6. Urine has 4-6 white count, which is minimally elevated. Urine drug screen was negative. ASSESSMENT AND PLAN: The patient will be admitted to the hospital with following medical condition: 1. Acute encephalopathy. As per nursing report, the patient has change in mental status, unclear etiology. By the time of my examination, the patient is confused, unknown what the baseline is, meaning history of previous stroke. We will monitor, treat accordingly. There was also concern that the patient had an episode of seizure and was postictal and aggressive, that remains in the differential. Those findings are not seen in the ER. 2. End-stage renal disease, on hemodialysis. The patient is followed by Dr. Soriano, who will need to be called in the morning for hemodialysis as inpatient. 3. History of stroke, unknown baseline. The patient has dysarthria and aphasia. We will monitor, treat accordingly. 4. Chronic macrocytic anemia. This is likely secondary to end-stage renal disease. We will defer treatment to Nephro. 5. Hyperkalemia, potassium 5.7. This is mild, already received treatment in ER. We will monitor. The patient is going for dialysis likely in the morning. 6. The patient presented with uncontrolled diabetes. Blood sugar 131. Insulin and dextrose given in the ER for potassium treatment. Reconcile home meds, sliding scale for ultimate control. 7. History of epilepsy. Reconcile home meds. There was concern for some possible seizure in the halfway. That has not been the case as of now. If the patient started having seizure, we will adjust his treatment as needed. 8. Controlled hypertension. Reconcile home meds, IV p.r.n. meds if needed for ultimate control. 9. Deep venous thrombosis prophylaxis. 10. Reported chest pain. We will trend troponins. Further treatment depending on results, might benefit from a stress test if warranted. MTDD
[2018-03-27] MEDS: Levothyroxine Sodium 125 MCG TAB PO SCH (05:34)
[2018-03-27 08:39] LABS: HBSAg Index 0.18 S/CO (0-0.99); Hep B Surf Ag Non-Reactive S/CO (NonReactive)
[2018-03-27] MEDS: Heparin 5,000 UNITS/ML VIAL SC SCH ×3 (08:48→20:11)
[2018-03-27] MEDS: Multivitamin W/ Minerals 1 TAB PO SCH (08:49)
[2018-03-27] MEDS: Prenatal Vitamin 1 TAB PO SCH (08:49)
[2018-03-27] MEDS: Mag-Al 1200 mg/1200 mg/30 ML UDCUP PO SCH ×4 (08:49→20:11)
[2018-03-27] MEDS: Sevelamer Carbonate 800 MG TAB PO SCH ×3 (08:49→16:04)
[2018-03-27] MEDS ORDERED: Midodrine HCl 5 MG TAB PO SCH (09:00)
[2018-03-27] MEDS ORDERED: Latanoprost 0.005% Ophth Soln 2.5 ml Bottle EA EYE SCH (21:00)
[2018-03-27] MEDS ORDERED: Citalopram 20 MG TAB PO SCH (21:00)
[2018-03-27] MEDS ORDERED: levETIRAcetam 500 MG TAB PO SCH (21:00)
--- NOTE | 2018-03-28 01:10 | CON ---
DATE OF CONSULTATION: 03/27/2018 CONSULTING PHYSICIAN: Bo Blank M.D. REQUESTING PHYSICIAN: Sy Velasco M.D. REASON FOR CONSULTATION: Need for maintenance hemodialysis. IMPRESSION: 1. End-stage renal disease, hemodialysis dependent, due for dialysis on Friday. 2. Altered mental status, query cause, possibly seizure in the context remote history of cerebrovasc ular accident. PLAN: 1. The patient to be dialyzed in accordance with his schedule of Friday, Friday and Friday with u ltrafiltration as tolerated by hemodynamics. 2. Further management to be dependent on the clinical course. HISTORY OF PRESENT ILLNESS: A 62-year-old gentleman with end-stage renal disease, hemodialysis depen dent, assisted resident with history of CVA who was brought in with altered mental status, which has been described as seizure, possibly need for maintenance hemodialysis necessitated this consultat ion. PAST MEDICAL HISTORY: Significant for end-stage renal disease, hemodialysis dependent; hypothyroidis m; diabetes; insomnia; hypertension; peripheral vascular disease; dyspepsia; glaucoma; epilepsy; and CVA. MEDICATIONS: Reviewed and as documented on [facility]. FAMILY HISTORY: Not significantly related to presenting illness. ALLERGIES: No known drug allergies. SOCIAL HISTORY: The patient is a assisted resident. No alcohol, no tobacco, no illicit drug use . PHYSICAL EXAMINATION: GENERAL: The patient was found not to be in any obvious distress at dialysis and noted with the foll owing vital signs. VITAL SIGNS: Afebrile, temperature 97.7, pulse 71, respiratory rate of 20, O2 sat 99% with blood pre ssure 119/63. HEENT: Unremarkable. Moist oral mucosa. CARDIOVASCULAR SYSTEM: First and second heart sounds were heard. RESPIRATORY SYSTEM: Clear to auscultation. EXTREMITIES: No peripheral edema. SKIN: No new gross rash. LYMPHATICS: No peripheral lymphadenopathy. SUMMARY: A 62-year-old gentleman with end-stage renal disease, hemodialysis dependent, who presented here with altered mental status. Thank you for this consultation. We will follow with you.
[2018-03-28] MEDS: Levothyroxine Sodium 125 MCG TAB PO SCH (06:25)
[2018-03-28] MEDS: Prenatal Vitamin 1 TAB PO SCH (08:32)
[2018-03-28] MEDS: Sevelamer Carbonate 800 MG TAB PO SCH (08:32)
[2018-03-28] MEDS: Mag-Al 1200 mg/1200 mg/30 ML UDCUP PO SCH (08:33)
[2018-03-28] MEDS: Heparin 5,000 UNITS/ML VIAL SC SCH (08:33)
[2018-03-28] MEDS: Multivitamin W/ Minerals 1 TAB PO SCH (08:33)
[2018-03-28 11:40] VITALS: BP 137/63; TEMP 97.6
--- NOTE | 2018-03-28 22:12 | DIS ---
DATE OF ADMISSION: 03/27/2018 DATE OF DISCHARGE: 03/28/2018 CONDITION AT THE TIME OF DISCHARGE: Stable and improved. DISCHARGE DISPOSITION: Back to [facility] with OT, PT evaluation. PRIMARY CARE PHYSICIAN: Stephan Morales M.D. DISCHARGE DIAGNOSIS: Altered mental status secondary to uremic state, now resolved. SECONDARY DISCHARGE DIAGNOSES: 1. End-stage renal disease, on hemodialysis. 2. Hypothyroidism. 3. Diabetes. 4. Hypertension. 5. Peripheral vascular disease. 6. Dyspepsia. 7. Muscle wasting. 8. Glaucoma. 9. Epilepsy. 10. History of cerebrovascular accident. CONSULTATIONS INHOUSE: Nephrology, Dr. Soriano PROCEDURES DURING THE HOSPITAL: Include; 1. CT scan of the brain upon presentation, which did not show any acute infarction, hemorrhage. Old traumatic injuries of the bifrontal cerebrum were seen. Chest x-ray was unremarkable on presentatio n. 2. Hemodialysis for maintenance. DISCHARGE MEDICATIONS: Remain the same as admission medication, no changes were made. Please see ad mission history and physical. HISTORY OF PRESENTING ILLNESS: Mr. Galarza is a 62-year-old male who lives in [facility] because of a history of CVA and possibly traumatic brain injury. He was sent by the [facility] staff for being combative. He was admitted for altered mental status. There was some question of seizure in the [facility], which was not witnessed by EMS or admitting physicians. Please see adm ission history and physical for further detail. He was found to have hyperkalemia with a potassium o f 5.7 and elevated creatinine to 5.39. TSH was normal. Cardiac enzymes were trended and were normal . HOSPITAL COURSE: The patient underwent emergent dialysis back to [facility] and his renal function improve d and so did his physical exam. His mentation improved back to his baseline. His serum Keppra level s were checked prior to discharge and are within therapeutic range at 23. No evidence of seizures fo r the two nights he has stayed in the hospital. OT, PT was ordered for him at [facility] for evaluation and if he qualifies to arrange for rehabili tation over at [facility]. This will be followed up by the physician in [facility]. The patient was seen and examined prior to discharge. He is sitting up in chair and is awake, alert, oriented x3. He does have some speech impediment, which is chronic for him, but no mental status ch anges were noticed. All questions were answered and discharge plan was discussed with him and he ilya balized understanding. PHYSICAL EXAMINATION: VITAL SIGNS: Temperature 97.6, pulse of 68, respirations 20, saturating 98% on room air, blood press ure 137/63. GENERAL: No acute distress. CHEST: Clear to auscultation bilaterally. Rate and rhythm is regular. EXTREMITIES: Free of any cyanosis, clubbing, or edema. LABORATORY DATA: Urine drug screen and plasma alcohol levels were normal. Urinalysis had trace wbc' s and leukocyte esterase, but no bacteria. Urine culture was sent, but the results are pending at th is time. CBC shows WBCs of 5.7 without any left shift. He is instructed to follow up with primary care physician in 1-2 weeks.
== END 2018-03-28 12:52 ==
LOC: ERS 19:45 → 2SW 22:48
PROVIDERS: ADMIT Hospitalist; ATTEND Hospitalist
DX: I12.0 Hypertensive chronic kidney disease with stage 5 chronic kidney disease or end stage renal disease (principal); E11.22 Type 2 diabetes mellitus with diabetic chronic kidney disease; N18.6 End stage renal disease; D63.1 Anemia in chronic kidney disease; E11.51 Type 2 diabetes mellitus with diabetic peripheral angiopathy without gangrene; E11.39 Type 2 diabetes mellitus with other diabetic ophthalmic complication; H40.9 Unspecified glaucoma; G40.909 Epilepsy, unspecified, not intractable, without status epilepticus; R07.9 Chest pain, unspecified; Z86.73 Personal history of transient ischemic attack (TIA), and cerebral infarction without residual deficits; Z79.4 Long term (current) use of insulin; Z79.899 Other long term (current) drug therapy; Z99.2 Dependence on renal dialysis
CPT/HCPCS: 70450; 71045; 80048; 80177; 80306; 80307; 82550; 82962 ×2; 84484 ×2; 85025; 87086; 87340; 93005; 96374; 96375; 97139; 99285; G0378; 36415; 36416; 81003; 81015; 84443; 90935; G0257; J1644; J1815